=== PATIENT | female | born 1965 | race Caucasian/White ===

== ENCOUNTER 2019-07-18 08:25 | Emergency (ER) | payer OTHER, SELFPAY ==
[2019-07-18 08:34] VITALS: BP 168/94; PULSE 95; RESP 16; TEMP 36.4; O2SAT 97; BMI 51.2
--- NOTE | 2019-07-18 08:41 | ED_ITS ---
HPI - Extremity Injury (Lower) General Chief Complaint: Extremity Injury, Lower Stated Complaint: suspected blood clot Time Seen by Provider: 07/18/19 08:36 Source: patient Mode of arrival: Ambulatory Limitations: no limitations History of Present Illness HPI Narrative: This is a 53-year-old female comes to the emergency department with complaint of some swelling redness and bruising over her right upper thigh. Patient states she noticed it yesterday. It does not look quite as intense today. Patient states is a little bit painful. She has had a blood clot/PE in the past but she states that was post surgical. Patient states she has not had any other DVTs or blood clots. She does not recall any trauma or injury. She states very seemed quite swollen and tense yesterday but does not clean quite as swollen or tense today. Patient denies any numbness, tingling or weakness. She denies any chest pain, shortness of breath, no nausea or vomiting other GI or urinary symptoms. She has not had any fevers or chills. She does not recall any cuts or abrasions or other injuries that could potentially cause infection. She does take metformin for diabetes. She states that she does sit for long periods of time. Related Data Previous Rx's Medication Instructions Recorded methocarbamol 0 PO QIDP PRN #30 tab 08/22/16 Allergies Allergy/AdvReac Type Severity Reaction Status Date / Time codeine [CODEINE] Allergy Unknown Verified 07/18/19 08:34 Review of Systems Review of Systems ROS Unobtainable: All systems reviewed & are unremarkable except as noted in HPI and below Patient History Medical History (Updated 07/18/19 @ 10:00 by Lianne Tijerina DO) Diabetes (Acute) Pulmonary embolism (Acute) Social History Smoking Status: Never smoker alcohol intake frequency: 0-2 drinks per day Substance Use Type: does not use Exam Narrative Exam Narrative: GENERAL: Alert and oriented x three, obese female in mild distress. HEENT: Head normocephalic, atraumatic, EOMI, pupils reactive, face symmetric, moist mucous membranes NECK: Supple, full range of motion CARDIOVASCULAR: Regular rate and rhythm without murmurs, rubs or gallops. RESPIRATORY: Breath sounds equal bilaterally, no wheezes rales or rhonchi. ABDOMEN: Soft, nontender. Normoactive bowel sounds all 4 quadrants. No guarding or rebound, rigidity, no mass : No CVA tenderness EXTREMITIES: Normal range of motion, no clubbing. Patient does appear to have some swelling of the right upper thigh short of extending medially, there is about a 5 cm patchy area that appears slightly erythematous, it is non raised with no other skin changes, area is very mildly warm, mildly tender to touch. I do not appreciate any hematoma, mass or nodules. No varicose veins are appreciated. Neurovascularly intact. patient has 2+ dorsalis pedis with normal sensation throughout her lower extremity. Leg is warm to touch. Cap refills less than 2 seconds. NEUROLOGICAL: Cranial nerves II through XII grossly intact. Moving all extremities SKIN: Warm, dry, no petechiae, no rashes or lesions. Initial Vital Signs Initial Vital Signs: Vital Signs Temperature 97.5 F L 07/18/19 08:34 Pulse Rate 95 H 07/18/19 08:34 Respiratory Rate 16 07/18/19 08:34 Blood Pressure 168/94 H 07/18/19 08:34 Pulse Oximetry 97 07/18/19 08:34 Scores Wells' Criteria for DVT Active Cancer (Treatment within 6 months): No Bedridden recently >3 days or major surgery within 4 weeks: No Calf Swelling >3cm compared to other leg: No Collateral (nonvericose) superficial veins present: No Entire leg swollen: No Localized tenderness along the deep vein system: Yes Pitting edema, confined to symtomatic leg: No Paralysis, paresis, or recent plaster immobilization of ext: No Previously documented DVT: No Alternative dx to DVT as likely or more likely: No Wells' criteria for DVT: 1 Course Orders Ordered: ED Orders 07/18/19 08:50 US periph venous low extrem rt Stat Vital Signs Vital signs: Vital Signs - 8 hr 07/18/19 08:34 07/18/19 10:13 Temperature 97.5 F L Pulse Rate 95 H 69 Respiratory Rate 16 18 Blood Pressure 168/94 H 149/90 H Pulse Oximetry 97 95 MDM - Extremity Injury (Lower) Imaging Data Venous US: Radiologist's impression: [address] [address] Ultrasound Report Signed Patient: Tita Kwan CMR#: [id number] : 1965Acct:[id number] Age/Sex: 53 / FDate of Service: 07/18/19 Loc: ED Accession Number: [id number] Procedure: US periph venous low extrem rt Ordering Provider: Lianne Tijerina D.O. PROCEDURE: PERIPH VENOUS LOW EXTREM RT INDICATIONS: CONCERN FOR DVT, REDNESS/SWELLING RIGHT UPPER THIGH TECHNIQUE: Real-time imaging, as well as color and pulse Doppler interrogation, were performed of the lower extremity deep veins from the inguinal ligament to the popliteal fossa. COMPARISON: None. FINDINGS: The common femoral, femoral and popliteal veins are normally compressible, and free of intraluminal thrombus. Color and pulse Doppler demonstrate normal phasic intraluminal flow. There is normal augmentation response to distal compression maneuver. At the site of the patient's concern along the anterior mid thigh there is an occluded varicose vein identified within the soft tissues of this region. This does not extend into the deep vein system. IMPRESSION: 1. No evidence of deep vein thrombosis of the right lower extremity. 2. Superficial thrombophlebitis along the anterior mid thigh without extension into the deep vein system. Dictated by: Ian Esparza M.D. on 07/18/2019 at 8:44 Approved by: Ian Esparza M.D. on 07/18/2019 at 8:45 MDM Narrative Medical decision making narrative: Discussed findings with patient there is a small but unlikely changes that she could develop a DVT subsequently. We discussed increasing her activity throughout the day so she is not sitting for prolonged periods. Potentially wearing clothes that would prevent her pannus from sitting on her thigh which she states happens and could have caused some compression. We also discussed doing short course of anticoagulant with aspirin although this is not required and she is welcome to discuss it with her primary care but would recommend that she follow up with PCP in 1 week for recheck. Discharge Plan Departure Patient Disposition: Home Clinical Impression: Superficial thrombophlebitis Qualifiers: Superficial thrombophlebitis-Involved body area: lower extremity Laterality: right Qualified Code(s): I80.01 - Phlebitis and thrombophlebitis of superficial vessels of right lower extremity Discharge Date/Time: 07/18/19 10:13 Instructions: DI for Superficial Thrombophlebitis Activity Restrictions/Additional Instructions: Follow-up with primary care in the next week for recheck, call for an appointment. You may take an aspirin 324 mg daily although your thrombophlebitis is not in the deep venous system so this is not required. You may continue home medications as prescribed. Use warm packs or heat to the affected area 4 times daily. Return to the emergency department for fevers, increasing redness, swelling, new shortness of breath, chest pain, numbness, tingling or other new or concerning symptoms. Prescriptions: No Action methocarbamol 500 MG tablet 0 PO QIDP PRNQty: 30 RF: 0 Referrals: Lily Yang PA-C [Primary Care Provider] -
--- NOTE | 2019-07-18 08:50 | DI.US.S_ITS ---
PROCEDURE: US PERIPH VENOUS LOW EXTREM RT INDICATIONS: CONCERN FOR DVT, REDNESS/SWELLING RIGHT UPPER THIGH TECHNIQUE: Real-time imaging, as well as color and pulse Doppler interrogation, were performed of the lower extremity deep veins from the inguinal ligament to the popliteal fossa. COMPARISON: None. FINDINGS: The common femoral, femoral and popliteal veins are normally compressible, and free of intraluminal thrombus. Color and pulse Doppler demonstrate normal phasic intraluminal flow. There is normal augmentation response to distal compression maneuver. At the site of the patient's concern along the anterior mid thigh there is an occluded varicose vein identified within the soft tissues of this region. This does not extend into the deep vein system. IMPRESSION: 1. No evidence of deep vein thrombosis of the right lower extremity. 2. Superficial thrombophlebitis along the anterior mid thigh without extension into the deep vein system. Dictated by: Ian Esparza M.D. on 07/18/2019 at 8:44 Approved by: Ian Esparza M.D. on 07/18/2019 at 8:45
[2019-07-18 10:13] VITALS: BP 149/90; PULSE 69; RESP 18; O2SAT 95
== END 2019-07-18 10:13 | disposition home or self-care (01) ==
PROVIDERS: Emergency Provider Emergency Medicine; Family Provider Physician Assistant; PCP Physician Assistant
DX: I80.01 Phlebitis and thrombophlebitis of superficial vessels of right lower extremity (principal); E11.9 Type 2 diabetes mellitus without complications
CPT/HCPCS: 93971; 99282; 99283

== ENCOUNTER 2019-10-27 07:30 | Outpatient (RCR) | payer OTHER, SELFPAY ==
--- NOTE | 2019-09-22 16:36 | PT.OIE ---
Current Diagnoses Low back pain (09/22/19) Past Medical History (Last Updated 07/18/19 @ 08:52 by Lianne Tijerina DO) Diabetes (Acute) Pulmonary embolism (Acute) Visit Care Team Role Provider Type Lily Yang PA-C Attending Provider Non-Staff Family Provider Primary Care Provider Specialty: Internal Medicine Address: [address] [place] [address], [id number] Email: Physical Therapy Initial Evaluation PT-OP-A Visit Information Start: 09/21/19 15:39 Freq: Status: Active Protocol: Document 09/22/19 08:45 EG (Rec: 09/22/19 10:01 EG [email or web address]) Out-Patient Physical Therapy Visit Information Visit Information Visit Type Initial Evaluation Visit Start Time 07:30 Visit Stop Time 08:30 Total Visit Minutes 60 Visit Number 1 Evaluation Information Evaluation Date 09/22/19 PT-OP-B Current Condition Start: 09/21/19 15:39 Freq: Status: Active Protocol: Document 09/22/19 08:45 EG (Rec: 09/22/19 11:19 EG [email or web address]) Current Condition History of Current Condition Onset Date Chronic Current Complaints Low back with L hip pain History of Current Condition Patient is a 54 year old female who reports to physical therapy with c/c of low back pain and L sided hip pain that began a few years ago and has gotten progressively worse over the years. Patient reports that she feels that she has an exacerbation of back pain every 6 months. She believes that her pain started to bother her when she bought her SUV and has been needing to step up in to it with her L hip in an (externally rotated ) position. She has had physical therapy in the past, about 12 years ago, that seemed to help. The patient has also had an MRI in the past but did not mention anything specific from the MRI . The patient reported that she thinks her pain in the L hip is bursitis and that she can feel this pain increase when hiking on uneven surfaces . The patient has increased exacerbations of pain in the morning and she has a 2 hour routine of heat, ice. and stretching to bring the pain in the low back to a functional level. The patient believes that her pain increases as she rotates side to side on her new memory foam mattress. 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 She also enjoys swimming and walking which does not seem to exacerbate her pain. The patient just bought a new RV to live in and has been placing firm pillows to support her when sitting in the new furniture and places an ottoman under her feet to help alleviate the symptoms. The patient would like to alleviate the pain with therapy and be able to walk her 2 dogs in the morning without having to worry about the pain of bending over and placing their leash on. Prior Treatments and Tests PT 12 years ago and an MRI per patient report that was not presented at evaluation. Patient also reported seeing the chiropracter often Future Testing and Treatments Planned Patient reported wanting to get another MRI in the near future Developmental History Developmental History Patient reports that the pain seems to increase every 6 months and has been getting progressively worse the past couple years. Treatment Goals Patient/Caregiver Goals Patient would like to get out of bed without pain in the morning and be able to bend over in the morning to put the leash on her dogs without pain. Prior Functional Status Baseline Function- ADL's Independent Baseline Function- Mobility Independent Baseline Function- Gait Increased pain in bilateral hips walking on uneven surfaces Baseline Function- Work/School Seated for most of the day Baseline Function- Recreation/Hobbies Swimming Walking Current Functional Impairments (Reported) Functional Limitations- ADL's Bed mobility, Transfers early in the morning Functional Limitations- Mobility/Gait Increased time hiking on uneven surfaces Personal Factors Other Personal Factors That May Effect Patient has BMI of 50.1 Therapy/Recovery Patient has Type II Diabetes Patient has just moved in to a new RV with new foam mattress and new furniture that she believes in increasing her symptoms PT-OP-C Subjective Start: 09/21/19 15:39 Freq: Status: Active Protocol: Document 09/22/19 08:45 EG (Rec: 09/22/19 12:29 EG [email or web address]) Patient Questionnaires Oswestry Low Back Index Oswestry Score 26% Oswestry Impairment 20 to 39% Impaired (Score 20- 39) OP-PT Pain Assessment Pain Assessment Grid Paper Pain Assessment Grid Completed Yes Comments Pain Comments Modified Oswestry Questionnaire completed PT-OP-F Manual Assessment Start: 09/21/19 15:39 Freq: Status: Active Protocol: Document 09/22/19 08:45 EG (Rec: 09/22/19 08:59 EG [email or web address]) Manual Assessments Soft Tissue Assessment Soft Tissue Mobility Assessment Increased soft tissue tension lateral left hip posterior and superior to greater trochanter. Increased tension in gluteal tendon. Joint Mobility Assessment Joint Mobility Assessment PA glide S1-L2 increased p! PT-OP-G Mobility & Gait Start: 09/21/19 15:39 Freq: Status: Active Protocol: Document 09/22/19 08:45 EG (Rec: 09/22/19 08:59 EG [email or web address]) OP Mobility Evaluation Bed Mobility Rolling unwilling to roll due to p! can physically do with momentum and poor mechanics Supine to and from Sit increased lumbar flexion needed with arm movement PT-OP-H Neuro Start: 09/21/19 15:39 Freq: Status: Active Protocol: Document 09/22/19 08:45 EG (Rec: 09/22/19 08:59 EG [email or web address]) Sensation Evaluation Gross Sensation Gross Sensation WNL Comments Summary Comments Did have sharp tingling p! radiating down left hamstring when completed rolling PT-OP-J Posture/Palpation/Skin Start: 09/21/19 15:39 Freq: Status: Active Protocol: Document 09/22/19 08:45 EG (Rec: 09/22/19 09:55 EG [email or web address]) Palpation Assessment Location Two Palpation Location L3-L5 PA glide Palpation Findings Tenderness,Trigger Point Palpation Details Increased sensation of p! 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 PT-OP-L Special Tests Start: 09/21/19 15:39 Freq: Status: Active Protocol: Document 09/22/19 08:45 EG (Rec: 09/22/19 08:59 EG [email or web address]) Special Tests Hip Special Tests FADIR Test Results + Comments When placing R in to test, increased symptoms in the L lower back YARA Test Results + Comments Left significantly different than R - increased soft tissue tension PT-OP-M Strength Start: 09/21/19 15:39 Freq: Status: Active Protocol: Document 09/22/19 08:45 EG (Rec: 09/22/19 09:55 EG [email or web address]) Hip Strength Hip Manual Muscle Testing Right Flexion (L2) 5 Normal Extension (S1) 5 Normal Abduction 4 Good External Rotation 4 Good Internal Rotation 4+ Good+ Comments p! in L low back with R hip IR MMT increased effort needed from patient for R hip ER MMT Left Flexion (L2) 5 Normal Extension (S1) 5 Normal Abduction 4 Good External Rotation 4+ Good+ Internal Rotation 4+ Good+ Comments Increased effort for L knee flexion while seated Knee Strength Knee Manual Muscle Testing Right Flexion (S2) 4+ Good+ Extension (L3) 4+ Good+ Comments Done Seated Left Flexion (S2) 4+ Good+ Extension (L3) 4+ Good+ Comments Done seated PT-OP-Q Treatments Start: 09/21/19 15:39 Freq: Status: Active Protocol: Document 09/22/19 08:45 EG (Rec: 09/22/19 13:12 EG [email or web address]) Therapeutic Exercises Supine Exercises Gluteal Stretch Supine Exercise Name Gluteal/Piriformis Stretch Side bilateral Equipment Used rolled up sheet/stretching strap Reps/Minutes 30 sec each side Comments strap around hamstrings with knee flexion with knee in to chest; figure-4 Posterior Pelvic Tilts Supine Exercise Name Posterior Pelvic Tilt Reps/Minutes 15x Sidelying Exercises Clamshells Sidelying Exercise Name Clamshells Side bilateral Reps/Minutes 20x Comments tactile and verbal cues to decrease A/P pelvic tilt PT-OP-R Modalities Start: 09/21/19 15:39 Freq: Status: Active Protocol: Document 09/22/19 08:45 EG (Rec: 09/22/19 15:48 EG [email or web address]) Hot Pack/Cold Pack Treatment Cold Pack Patient Position Hooklying Treatment Duration (minutes) 7 Patient Tolerance Good Comments She independently took cold pack off after 7 minutes PT-OP-T Assessment and Plan Start: 09/21/19 15:39 Freq: Status: Active Protocol: Document 09/22/19 08:45 EG (Rec: 09/22/19 15:48 EG [email or web address]) Physical Therapy Assessment Rehab Potential Rehabilitation Potential Good Evaluation Complexity Number of Personal Factors/Comorbidities 3 or More Number of Body Systems Impaired 4 or More Clinical Presentation at Evaluation Evolving Impairments Impairments Activity Tolerance,Functional Activities,Functional Mobility ,Gait,Pain,Posture,Soft Tissue Mobility,Strength Goals Three Impairment Bed mobility Short Term Goal (STG) Patient will be able to complete log roll bilaterally with a 0/10 pain in low back while on hard mat table in clinic in 4-6 weeks. STG Duration 4-6 weeks Senior Care Goal (LTG) Patient will be able to complete log roll bilaterally with 0/10 pain in low back while on memory foam matress at home in 8-10 weeks. LTG Duration 8-10 weeks. Two Impairment Morning p! Short Term Goal (STG) Patient will be able to decrease the amount of time in morning to increase soft tissue mobility to <1 hour before being able to walk her dogs without p!. STG Duration 3-4 weeks Senior Care Goal (LTG) Patient will be able to wake up with no pain after 7-8 weeks. LTG Duration 7-8 weeks One Impairment Lumbar Flexion ROM Short Term Goal (STG) Patient will be able to increase her lumbar flexion ROM to be able to touch the ground with her finger tips without pain in 3-4 weeks. STG Duration 3-4 weeks Senior Care Goal (LTG) Patient will be able to increase her lumbar ROM to be able to move in all planes with no pain in 7-8 weeks. LTG Duration 7-8 weeks Assessment Summary Assessment Patient is experiencing soft tissue tightness in the distal erector spinae and supporting SIJ musculature due to inactivity as well as decreased stabilizing muscle strength. As patient increases neuromuscular connection to the TA as well as Gluteal medius during functional activities, the patient will begin to increase pain free mobility when performing fuinctional movement. Patient will also benefit from increased soft tissue lengthening exercises to allow for increased ROM in lumbar flexion, rotation, and lateral flexion to be able to reach down and play with her dogs in a pain free way. Physical Therapy Plan Frequency and Duration Frequency of Treatment 2x/Week Duration of Treatment 8 weeks Plan of Care Start Date 09/22/19 Plan of Care End Date 11/17/19 Therapeutic Interventions Therapeutic Interventions Balance Training,Gait Training ,Home Exercise Program,Joint Mobilizations,Manual Therapy, Neuromuscular Re-education, Self-Care/Home Management,Soft Tissue Mobilization, Therapeutic Activities, Therapeutic Exercises Modalities Cold Pack/Ice Massage,Electric Stimulation,Hot Packs, Traction- Mechanical Next Visit Focus/Plan Next Note Type Treatment Note Next Visit Plan Look at effect of HEP, start warm-up on treadmill, soft tissue mobilization of low spine, increase hip abduction strength exercises such as standing sideways walking, possible traction, increase TA activation with leg movement,
--- NOTE | 2019-09-29 09:36 | PT.OTN ---
Current Diagnoses Low back pain (09/29/19) Physical Therapy Treatment Note PT-OP-A Visit Information Start: 09/21/19 15:39 Freq: Status: Active Protocol: Document 09/29/19 08:33 EG (Rec: 09/29/19 08:59 EG [email or web address]) Out-Patient Physical Therapy Visit Information Visit Information Visit Type Treatment Note Visit Note 11/05 Visit Start Time 07:30 Visit Stop Time 08:15 Total Visit Minutes 45 Visit Number 2 PT-OP-B Current Condition Start: 09/21/19 15:39 Freq: Status: Active Protocol: Document 09/22/19 08:45 EG (Rec: 09/22/19 11:19 EG [email or web address]) Current Condition History of Current Condition Onset Date Chronic Current Complaints Low back with L hip pain History of Current Condition Patient is a 54 year old female who reports to physical therapy with c/c of low back pain and L sided hip pain that began a few years ago and has gotten progressively worse over the years. Patient reports that she feels that she has an exacerbation of back pain every 6 months. She believes that her pain started to bother her when she bought her SUV and has been needing to step up in to it with her L hip in an (externally rotated ) position. She has had physical therapy in the past, about 12 years ago, that seemed to help. The patient has also had an MRI in the past but did not mention anything specific from the MRI . The patient reported that she thinks her pain in the L hip is bursitis and that she can feel this pain increase when hiking on uneven surfaces . The patient has increased exacerbations of pain in the morning and she has a 2 hour routine of heat, ice. and stretching to bring the pain in the low back to a functional level. The patient believes that her pain increases as she rotates side to side on her new memory foam mattress. 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 She also enjoys swimming and walking which does not seem to exacerbate her pain. The patient just bought a new RV to live in and has been placing firm pillows to support her when sitting in the new furniture and places an ottoman under her feet to help alleviate the symptoms. The patient would like to alleviate the pain with therapy and be able to walk her 2 dogs in the morning without having to worry about the pain of bending over and placing their leash on. Prior Treatments and Tests PT 12 years ago and an MRI per patient report that was not presented at evaluation. Patient also reported seeing the chiropracter often Future Testing and Treatments Planned Patient reported wanting to get another MRI in the near future Developmental History Developmental History Patient reports that the pain seems to increase every 6 months and has been getting progressively worse the past couple years. Treatment Goals Patient/Caregiver Goals Patient would like to get out of bed without pain in the morning and be able to bend over in the morning to put the leash on her dogs without pain. Prior Functional Status Baseline Function- ADL's Independent Baseline Function- Mobility Independent Baseline Function- Gait Increased pain in bilateral hips walking on uneven surfaces Baseline Function- Work/School Seated for most of the day Baseline Function- Recreation/Hobbies Swimming Walking Current Functional Impairments (Reported) Functional Limitations- ADL's Bed mobility, Transfers early in the morning Functional Limitations- Mobility/Gait Increased time hiking on uneven surfaces Personal Factors Other Personal Factors That May Effect Patient has BMI of 50.1 Therapy/Recovery Patient has Type II Diabetes Patient has just moved in to a new with new foam mattress and new furniture that she believes in increasing her symptoms PT-OP-C Subjective Start: 09/21/19 15:39 Freq: Status: Active Protocol: Document 09/29/19 08:33 EG (Rec: 09/29/19 08:59 EG [email or web address]) OP-PT Subjective Patient Comments Patient Comments Patient reports that she is feeling better compared to last week when she was sick. She had flu-like symptoms for 3 days and just had to lay around during that time so she is feeling pretty sore. Patient reported that the pelvic tilts she is doing at home causes pain in her back. She also reports that she has not had any nerve like pain flare ups since her evaluation . PT-OP-F Manual Assessment Start: 09/21/19 15:39 Freq: Status: Active Protocol: Document 09/22/19 08:45 EG (Rec: 09/22/19 08:59 EG [email or web address]) Manual Assessments Soft Tissue Assessment Soft Tissue Mobility Assessment Increased soft tissue tension lateral left hip posterior and superior to greater trochanter. Increased tension in gluteal tendon. Joint Mobility Assessment Joint Mobility Assessment PA glide S1-L2 increased p! PT-OP-G Mobility & Gait Start: 09/21/19 15:39 Freq: Status: Active Protocol: Document 09/22/19 08:45 EG (Rec: 09/22/19 08:59 EG [email or web address]) OP Mobility Evaluation Bed Mobility Rolling unwilling to roll due to p! can physically do with momentum and poor mechanics Supine to and from Sit increased lumbar flexion needed with arm movement PT-OP-H Neuro Start: 09/21/19 15:39 Freq: Status: Active Protocol: Document 09/22/19 08:45 EG (Rec: 09/22/19 08:59 EG [email or web address]) Sensation Evaluation Gross Sensation Gross Sensation WNL Comments Summary Comments Did have sharp tingling p! radiating down left hamstring when completed rolling PT-OP-J Posture/Palpation/Skin Start: 09/21/19 15:39 Freq: Status: Active Protocol: Document 09/22/19 08:45 EG (Rec: 09/22/19 09:55 EG [email or web address]) Palpation Assessment Location Two Palpation Location L3-L5 PA glide Palpation Findings Tenderness,Trigger Point Palpation Details Increased sensation of p! 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 PT-OP-L Special Tests Start: 09/21/19 15:39 Freq: Status: Active Protocol: Document 09/22/19 08:45 EG (Rec: 09/22/19 08:59 EG [email or web address]) Special Tests Hip Special Tests FADIR Test Results + Comments When placing R in to test, increased symptoms in the L lower back YARA Test Results + Comments Left significantly different than R - increased soft tissue tension PT-OP-M Strength Start: 09/21/19 15:39 Freq: Status: Active Protocol: Document 09/22/19 08:45 EG (Rec: 09/22/19 09:55 EG [email or web address]) Hip Strength Hip Manual Muscle Testing Right Flexion (L2) 5 Normal Extension (S1) 5 Normal Abduction 4 Good External Rotation 4 Good Internal Rotation 4+ Good+ Comments p! in L low back with R hip IR MMT increased effort needed from patient for R hip ER MMT Left Flexion (L2) 5 Normal Extension (S1) 5 Normal Abduction 4 Good External Rotation 4+ Good+ Internal Rotation 4+ Good+ Comments Increased effort for L knee flexion while seated Knee Strength Knee Manual Muscle Testing Right Flexion (S2) 4+ Good+ Extension (L3) 4+ Good+ Comments Done Seated Left Flexion (S2) 4+ Good+ Extension (L3) 4+ Good+ Comments Done seated PT-OP-Q Treatments Start: 09/21/19 15:39 Freq: Status: Active Protocol: Document 09/29/19 08:33 EG (Rec: 09/29/19 08:59 EG [email or web address]) Cardio Equipment Treadmill Duration (Minutes) 5 Speed 3.0 Incline .5 Therapeutic Exercises Supine Exercises DKTC with knee extension Supine Exercise Name Double knee to chest coupled with knee extension Side bilateral Reps/Minutes 10x Comments patient felt slight discomfort moving knees to chest Supine spinal twist Supine Exercise Name Supine spinal twist Side bilateral Reps/Minutes 10x Comments last twist hold for 30 seconds Posterior Pelvic Tilts Supine Exercise Name Posterior Pelvic Tilt Reps/Minutes 15x Comments Verbal cue to decrease amount of push down in to the table Sidelying Exercises Clamshells Sidelying Exercise Name Clamshells Side bilateral Reps/Minutes 20x Comments tactile and verbal cues to decrease A/P pelvic tilt Standing Exercises Hip Abduction/Extension Standing Exercise Name Hip abduction/extension Side bilateral Equipment Used handrail Reps/Minutes 10x ea side hamstring stretch Standing Exercise Name Hamstring/gastrocnemius Stretch Side bilateral Equipment Used handrails/ARMANDO Reps/Minutes hold 30 seconds Comments tension in L knee Manual Therapy Treatment Manual Traction Low back Details hooklying manual traction Body Position Hooklying Reps/Duration 10 min Comments towel under strap PT-OP-R Modalities Start: 09/21/19 15:39 Freq: Status: Active Protocol: Document 09/22/19 08:45 EG (Rec: 09/22/19 15:48 EG [email or web address]) Hot Pack/Cold Pack Treatment Cold Pack Patient Position Hooklying Treatment Duration (minutes) 7 Patient Tolerance Good Comments She independently took cold pack off after 7 minutes PT-OP-T Assessment and Plan Start: 09/21/19 15:39 Freq: Status: Active Protocol: Document 09/29/19 08:33 EG (Rec: 09/29/19 08:59 EG [email or web address]) Physical Therapy Assessment Assessment Summary Assessment Patient tolerated treatment well this morning and was able to complete standing hip strengthening exercises with slight fatigue. Patient does feel strain on low back when supine and moving in to hip flexion and will benefit from low intensity stretching of this area to help release the musculature around the low back. Hamstring length and posterior chain has decreased tissue length and patient will benefit from increased stretching of posterior chain. Patient should advance core strengthening as tolerated and will continue to benefit from neuromuscular reeduucation of the stabilizing muscles in the hip and the core. Physical Therapy Plan Next Visit Focus/Plan Next Visit Plan Standing lat and low back stretch, continue hamstring and calf stretches. squats at bar. Work on balance. try DKTC with irish ball and rotation
--- NOTE | 2019-10-02 10:34 | PT.OTN ---
Current Diagnoses Low back pain (10/02/19) Physical Therapy Treatment Note PT-OP-A Visit Information Start: 09/21/19 15:39 Freq: Status: Active Protocol: Document 10/02/19 09:23 EG (Rec: 10/02/19 09:40 EG [email or web address]) Out-Patient Physical Therapy Visit Information Visit Information Visit Type Treatment Note Visit Note 12/03 Visit Start Time 07:30 Visit Stop Time 08:15 Total Visit Minutes 45 Visit Number 3 PT-OP-B Current Condition Start: 09/21/19 15:39 Freq: Status: Active Protocol: Document 09/22/19 08:45 EG (Rec: 09/22/19 11:19 EG [email or web address]) Current Condition History of Current Condition Onset Date Chronic Current Complaints Low back with L hip pain History of Current Condition Patient is a 54 year old female who reports to physical therapy with c/c of low back pain and L sided hip pain that began a few years ago and has gotten progressively worse over the years. Patient reports that she feels that she has an exacerbation of back pain every 6 months. She believes that her pain started to bother her when she bought her SUV and has been needing to step up in to it with her L hip in an (externally rotated ) position. She has had physical therapy in the past, about 12 years ago, that seemed to help. The patient has also had an MRI in the past but did not mention anything specific from the MRI . The patient reported that she thinks her pain in the L hip is bursitis and that she can feel this pain increase when hiking on uneven surfaces . The patient has increased exacerbations of pain in the morning and she has a 2 hour routine of heat, ice. and stretching to bring the pain in the low back to a functional level. The patient believes that her pain increases as she rotates side to side on her new memory foam mattress. 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 She also enjoys swimming and walking which does not seem to exacerbate her pain. The patient just bought a new RV to live in and has been placing firm pillows to support her when sitting in the new furniture and places an ottoman under her feet to help alleviate the symptoms. The patient would like to alleviate the pain with therapy and be able to walk her 2 dogs in the morning without having to worry about the pain of bending over and placing their leash on. Prior Treatments and Tests PT 12 years ago and an MRI per patient report that was not presented at evaluation. Patient also reported seeing the chiropracter often Future Testing and Treatments Planned Patient reported wanting to get another MRI in the near future Developmental History Developmental History Patient reports that the pain seems to increase every 6 months and has been getting progressively worse the past couple years. Treatment Goals Patient/Caregiver Goals Patient would like to get out of bed without pain in the morning and be able to bend over in the morning to put the leash on her dogs without pain. Prior Functional Status Baseline Function- ADL's Independent Baseline Function- Mobility Independent Baseline Function- Gait Increased pain in bilateral hips walking on uneven surfaces Baseline Function- Work/School Seated for most of the day Baseline Function- Recreation/Hobbies Swimming Walking Current Functional Impairments (Reported) Functional Limitations- ADL's Bed mobility, Transfers early in the morning Functional Limitations- Mobility/Gait Increased time hiking on uneven surfaces Personal Factors Other Personal Factors That May Effect Patient has BMI of 50.1 Therapy/Recovery Patient has Type II Diabetes Patient has just moved in to a new with new foam mattress and new furniture that she believes in increasing her symptoms PT-OP-C Subjective Start: 09/21/19 15:39 Freq: Status: Active Protocol: Document 10/02/19 09:23 EG (Rec: 10/02/19 09:40 EG [email or web address]) OP-PT Subjective Patient Comments Patient Comments Patient reports that after last session she started to feel an ear infection coming on and didn't feel good at all so she was more sedentary this past week than usual. She only did her exercises one or two times and laid around alot because she wasn't feeling good. Patient also reported that she felt more pain in her knee after doing the traction last visit but her back did feel slightly less sore the next morning. Patient also feels like her R foot started to bother her after last session but doesn't know if she irritated it at therapy or by doing nothing at home. PT-OP-F Manual Assessment Start: 09/21/19 15:39 Freq: Status: Active Protocol: Document 09/22/19 08:45 EG (Rec: 09/22/19 08:59 EG [email or web address]) Manual Assessments Soft Tissue Assessment Soft Tissue Mobility Assessment Increased soft tissue tension lateral left hip posterior and superior to greater trochanter. Increased tension in gluteal tendon. Joint Mobility Assessment Joint Mobility Assessment PA glide S1-L2 increased p! PT-OP-G Mobility & Gait Start: 09/21/19 15:39 Freq: Status: Active Protocol: Document 09/22/19 08:45 EG (Rec: 09/22/19 08:59 EG [email or web address]) OP Mobility Evaluation Bed Mobility Rolling unwilling to roll due to p! can physically do with momentum and poor mechanics Supine to and from Sit increased lumbar flexion needed with arm movement PT-OP-H Neuro Start: 09/21/19 15:39 Freq: Status: Active Protocol: Document 09/22/19 08:45 EG (Rec: 09/22/19 08:59 EG [email or web address]) Sensation Evaluation Gross Sensation Gross Sensation WNL Comments Summary Comments Did have sharp tingling p! radiating down left hamstring when completed rolling PT-OP-J Posture/Palpation/Skin Start: 09/21/19 15:39 Freq: Status: Active Protocol: Document 09/22/19 08:45 EG (Rec: 09/22/19 09:55 EG [email or web address]) Palpation Assessment Location Two Palpation Location L3-L5 PA glide Palpation Findings Tenderness,Trigger Point Palpation Details Increased sensation of p! 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 PT-OP-L Special Tests Start: 09/21/19 15:39 Freq: Status: Active Protocol: Document 09/22/19 08:45 EG (Rec: 09/22/19 08:59 EG [email or web address]) Special Tests Hip Special Tests FADIR Test Results + Comments When placing R in to test, increased symptoms in the L lower back YARA Test Results + Comments Left significantly different than R - increased soft tissue tension PT-OP-M Strength Start: 09/21/19 15:39 Freq: Status: Active Protocol: Document 09/22/19 08:45 EG (Rec: 09/22/19 09:55 EG [email or web address]) Hip Strength Hip Manual Muscle Testing Right Flexion (L2) 5 Normal Extension (S1) 5 Normal Abduction 4 Good External Rotation 4 Good Internal Rotation 4+ Good+ Comments p! in L low back with R hip IR MMT increased effort needed from patient for R hip ER MMT Left Flexion (L2) 5 Normal Extension (S1) 5 Normal Abduction 4 Good External Rotation 4+ Good+ Internal Rotation 4+ Good+ Comments Increased effort for L knee flexion while seated Knee Strength Knee Manual Muscle Testing Right Flexion (S2) 4+ Good+ Extension (L3) 4+ Good+ Comments Done Seated Left Flexion (S2) 4+ Good+ Extension (L3) 4+ Good+ Comments Done seated PT-OP-Q Treatments Start: 09/21/19 15:39 Freq: Status: Active Protocol: Document 10/02/19 09:23 EG (Rec: 10/02/19 09:40 EG [email or web address]) Cardio Equipment Treadmill Duration (Minutes) 5 Speed 1.7 Incline .5 Therapeutic Exercises Sitting Exercises Cat/Cow Sitting Exercise Name Extension/Flexion/Lateral Flexion Side bilateral Equipment Used seated at mat table Reps/Minutes 10x flex/ext - 30 sec lateral flexion Comments move with breath Standing Exercises Side stepping Standing Exercise Name Side stepping R/L Side bilateral Reps/Minutes 15 feet each side; 3x Comments increase neuro activation of glteal muscle firing Lat stretch Standing Exercise Name Standing lat stretch - fwd, bilateral side Side bilateral Equipment Used mat table Reps/Minutes 30 seconds each Comments patient bend at hips with arms supported on mat hamstring stretch Standing Exercise Name Hamstring/gastrocnemius Stretch Side bilateral Equipment Used handrails/ARMANDO Reps/Minutes hold 30 seconds x 2 Comments increase tension on L hamstring PT-OP-R Modalities Start: 09/21/19 15:39 Freq: Status: Active Protocol: Document 10/02/19 09:23 EG (Rec: 10/02/19 09:43 EG [email or web address]) Other Unlisted Modality Treatment Laser Name of Modality Low level laser (LLT) Duration (Minutes) 7 Body Position Sidelying Parameters soft tisse stiffness/pain, chronic, pulsed med Comments Bilateral side of SIJ, L glute med posterior to greater trochanter PT-OP-T Assessment and Plan Start: 09/21/19 15:39 Freq: Status: Active Protocol: Document 10/02/19 09:23 EG (Rec: 10/02/19 09:40 EG [email or web address]) Physical Therapy Assessment Assessment Summary Assessment Patient has been sedentary this past week which does increase stiffness and tension in the lower back. Patient does feel relief with increased soft tissue lengthening and will continue to benefit from therapeutic exercises focused on pain free ROM as well as erector spinae stretching to release tension around the SIJ. Patient should also continue with increased aerobic activity and strengthening core stabilizing musculature/ Physical Therapy Plan Next Visit Focus/Plan Next Visit Plan Continue stretching of HS/ Gastrocnemius/lats. Continue pain-free ROM of spine - possibly progress to hands and knees cat cow. Continue to work on glue med activation. Increase TA engagement. Begin balance training for hip and core stabilization and strengthening Rabia Jenkins DPT, supervised all treatment performed by, and agreed with the plan of care, as performed by MESSI Mina.
--- NOTE | 2019-10-06 09:00 | PT.OTN ---
Current Diagnoses Low back pain (10/06/19) Physical Therapy Treatment Note PT-OP-A Visit Information Start: 09/21/19 15:39 Freq: Status: Active Protocol: Document 10/06/19 08:17 SP (Rec: 10/06/19 11:52 SP [id number]) Out-Patient Physical Therapy Visit Information Visit Information Visit Type Treatment Note Visit Note 01/03 Visit Start Time 08:17 Visit Stop Time 09:00 Total Visit Minutes 43 Visit Number 4 Number of WEB SERVICES MANAGER Visits 1 PT-OP-B Current Condition Start: 09/21/19 15:39 Freq: Status: Active Protocol: Document 09/22/19 08:45 EG (Rec: 09/22/19 11:19 EG [email or web address]) Current Condition History of Current Condition Onset Date Chronic Current Complaints Low back with L hip pain History of Current Condition Patient is a 54 year old female who reports to physical therapy with c/c of low back pain and L sided hip pain that began a few years ago and has gotten progressively worse over the years. Patient reports that she feels that she has an exacerbation of back pain every 6 months. She believes that her pain started to bother her when she bought her SUV and has been needing to step up in to it with her L hip in an (externally rotated ) position. She has had physical therapy in the past, about 12 years ago, that seemed to help. The patient has also had an MRI in the past but did not mention anything specific from the MRI . The patient reported that she thinks her pain in the L hip is bursitis and that she can feel this pain increase when hiking on uneven surfaces . The patient has increased exacerbations of pain in the morning and she has a 2 hour routine of heat, ice. and stretching to bring the pain in the low back to a functional level. The patient believes that her pain increases as she rotates side to side on her new memory foam mattress. 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 She also enjoys swimming and walking which does not seem to exacerbate her pain. The patient just bought a new RV to live in and has been placing firm pillows to support her when sitting in the new furniture and places an ottoman under her feet to help alleviate the symptoms. The patient would like to alleviate the pain with therapy and be able to walk her 2 dogs in the morning without having to worry about the pain of bending over and placing their leash on. Prior Treatments and Tests PT 12 years ago and an MRI per patient report that was not presented at evaluation. Patient also reported seeing the chiropracter often Future Testing and Treatments Planned Patient reported wanting to get another MRI in the near future Developmental History Developmental History Patient reports that the pain seems to increase every 6 months and has been getting progressively worse the past couple years. Treatment Goals Patient/Caregiver Goals Patient would like to get out of bed without pain in the morning and be able to bend over in the morning to put the leash on her dogs without pain. Prior Functional Status Baseline Function- ADL's Independent Baseline Function- Mobility Independent Baseline Function- Gait Increased pain in bilateral hips walking on uneven surfaces Baseline Function- Work/School Seated for most of the day Baseline Function- Recreation/Hobbies Swimming Walking Current Functional Impairments (Reported) Functional Limitations- ADL's Bed mobility, Transfers early in the morning Functional Limitations- Mobility/Gait Increased time hiking on uneven surfaces Personal Factors Other Personal Factors That May Effect Patient has BMI of 50.1 Therapy/Recovery Patient has Type II Diabetes Patient has just moved in to a new with new foam mattress and new furniture that she believes in increasing her symptoms PT-OP-C Subjective Start: 09/21/19 15:39 Freq: Status: Active Protocol: Document 10/06/19 08:17 SP (Rec: 10/06/19 11:52 SP [id number]) OP-PT Subjective Patient Comments Patient Comments Pt stated woke up this am and L shldd in pain, think slept wrong on it. She said was in more pain after last tx and had to take meloxican, hydocodone 9pm and another at 1230am to assist pain along with stretching, heat and ice. When woke up was alot better on Sat. Her L hip is better. Did do stretches, water walking over the weekend but notmuch exercises unsure if would be more irritating. PT-OP-F Manual Assessment Start: 09/21/19 15:39 Freq: Status: Active Protocol: Document 09/22/19 08:45 EG (Rec: 09/22/19 08:59 EG [email or web address]) Manual Assessments Soft Tissue Assessment Soft Tissue Mobility Assessment Increased soft tissue tension lateral left hip posterior and superior to greater trochanter. Increased tension in gluteal tendon. Joint Mobility Assessment Joint Mobility Assessment PA glide S1-L2 increased p! PT-OP-G Mobility & Gait Start: 09/21/19 15:39 Freq: Status: Active Protocol: Document 09/22/19 08:45 EG (Rec: 09/22/19 08:59 EG [email or web address]) OP Mobility Evaluation Bed Mobility Rolling unwilling to roll due to p! can physically do with momentum and poor mechanics Supine to and from Sit increased lumbar flexion needed with arm movement PT-OP-H Neuro Start: 09/21/19 15:39 Freq: Status: Active Protocol: Document 09/22/19 08:45 EG (Rec: 09/22/19 08:59 EG [email or web address]) Sensation Evaluation Gross Sensation Gross Sensation WNL Comments Summary Comments Did have sharp tingling p! radiating down left hamstring when completed rolling PT-OP-J Posture/Palpation/Skin Start: 09/21/19 15:39 Freq: Status: Active Protocol: Document 09/22/19 08:45 EG (Rec: 09/22/19 09:55 EG [email or web address]) Palpation Assessment Location Two Palpation Location L3-L5 PA glide Palpation Findings Tenderness,Trigger Point Palpation Details Increased sensation of p! 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 PT-OP-L Special Tests Start: 09/21/19 15:39 Freq: Status: Active Protocol: Document 09/22/19 08:45 EG (Rec: 09/22/19 08:59 EG [email or web address]) Special Tests Hip Special Tests FADIR Test Results + Comments When placing R in to test, increased symptoms in the L lower back YARA Test Results + Comments Left significantly different than R - increased soft tissue tension PT-OP-M Strength Start: 09/21/19 15:39 Freq: Status: Active Protocol: Document 09/22/19 08:45 EG (Rec: 09/22/19 09:55 EG [email or web address]) Hip Strength Hip Manual Muscle Testing Right Flexion (L2) 5 Normal Extension (S1) 5 Normal Abduction 4 Good External Rotation 4 Good Internal Rotation 4+ Good+ Comments p! in L low back with R hip IR MMT increased effort needed from patient for R hip ER MMT Left Flexion (L2) 5 Normal Extension (S1) 5 Normal Abduction 4 Good External Rotation 4+ Good+ Internal Rotation 4+ Good+ Comments Increased effort for L knee flexion while seated Knee Strength Knee Manual Muscle Testing Right Flexion (S2) 4+ Good+ Extension (L3) 4+ Good+ Comments Done Seated Left Flexion (S2) 4+ Good+ Extension (L3) 4+ Good+ Comments Done seated PT-OP-Q Treatments Start: 09/21/19 15:39 Freq: Status: Active Protocol: Document 10/06/19 08:17 SP (Rec: 10/06/19 11:52 SP [id number]) Cardio Equipment Treadmill Duration (Minutes) 5 Speed 1.7 Incline .5 Therapeutic Exercises Supine Exercises DKTC core lift Side bilateral Resistance AROM Reps/Minutes 2x5 Comments Cued lower ribcage toward table with slow pacing HS stretch Side bilateral Equipment Used strap Reps/Minutes 30 x3 Prone Exercises Child's pose stretch Prone Exercise Name child's pose with side bend Side bilateral Reps/Minutes 30 x3 quadruped Prone Exercise Name cat camel Resistance AROM Reps/Minutes x10 Sidelying Exercises Clamshells Sidelying Exercise Name Clamshells Side bilateral Reps/Minutes 10x Comments tactile and verbal cues to decrease A/P pelvic tilt Standing Exercises Gastroc stretch Side bilateral Equipment Used ARMANDO wedge Reps/Minutes 30 x3 PT-OP-R Modalities Start: 09/21/19 15:39 Freq: Status: Active Protocol: Document 10/06/19 08:17 SP (Rec: 10/06/19 11:52 SP [email or web address]) Other Unlisted Modality Treatment Laser Name of Modality Low level laser (LLT) Duration (Minutes) 7 Body Position Sidelying Parameters soft tisse stiffness/pain, chronic, pulsed med Comments Bilateral side of SIJ, L glute med posterior to greater trochanter 1.06 min / area 58 joules PT-OP-T Assessment and Plan Start: 09/21/19 15:39 Freq: Status: Active Protocol: Document 10/06/19 08:17 SP (Rec: 10/06/19 11:52 SP [id number]) Physical Therapy Assessment Goals Three Impairment Bed mobility Short Term Goal (STG) Patient will be able to complete log roll bilaterally with a 0/10 pain in low back while on hard mat table in clinic in 4-6 weeks. STG Duration 4-6 weeks Integrated Logistics Programs Director Goal (LTG) Patient will be able to complete log roll bilaterally with 0/10 pain in low back while on memory foam matress at home in 8-10 weeks. LTG Duration 8-10 weeks. Two Impairment Morning p! Short Term Goal (STG) Patient will be able to decrease the amount of time in morning to increase soft tissue mobility to <1 hour before being able to walk her dogs without p!. STG Duration 3-4 weeks Integrated Logistics Programs Director Goal (LTG) Patient will be able to wake up with no pain after 7-8 weeks. LTG Duration 7-8 weeks One Impairment Lumbar Flexion ROM Short Term Goal (STG) Patient will be able to increase her lumbar flexion ROM to be able to touch the ground with her finger tips without pain in 3-4 weeks. STG Duration 3-4 weeks Integrated Logistics Programs Director Goal (LTG) Patient will be able to increase her lumbar ROM to be able to move in all planes with no pain in 7-8 weeks. LTG Duration 7-8 weeks Assessment Summary Assessment Pt had adverse reactions to last tx having to take meds to assist and many change of positions but next day was over all better. Pt responded well to tx today. Reviewed supine core DL lift and added HS stretch using strap with cuing for 3 positions (hip reg /IR/ER), added quadruped cat/ cow with no adverse reactions, feels good actually on the back,did not tolerated seated trunk flexion secondary to posterolateral hip and LB discomfort so changed to supine. Cued for Unilateral calf stretch so not worry about balancing and contact wall for support. Pt tolerated lazer, repeated as last tx patient stated hip felt better over all next day. Physical Therapy Plan Frequency and Duration Frequency of Treatment 2x/Week Duration of Treatment 8 weeks Plan of Care Start Date 09/22/19 Plan of Care End Date 11/17/19 Therapeutic Interventions Therapeutic Interventions Balance Training,Gait Training ,Home Exercise Program,Joint Mobilizations,Manual Therapy, Neuromuscular Re-education, Self-Care/Home Management,Soft Tissue Mobilization, Therapeutic Activities, Therapeutic Exercises Modalities Cold Pack/Ice Massage,Electric Stimulation,Hot Packs, Traction- Mechanical Next Visit Focus/Plan Next Visit Plan Assess response to cat/cow and supine HS stretch added last tx. Next tx add ITB stretch instanding due to tight ITB lateral knee, didnt get to today. Continue stretching of HS/ Gastrocnemius/lats. Continue pain-free ROM of spine - possibly progress to hands and knees cat cow. Continue to work on glue med activation. Increase TA engagement. Begin balance training for hip and core stabilization and strengthening
--- NOTE | 2019-10-06 09:00 | PT.OTN ---
Current Diagnoses Low back pain (10/06/19) Physical Therapy Treatment Note PT-OP-A Visit Information Start: 09/21/19 15:39 Freq: Status: Active Protocol: Document 10/06/19 08:17 SP (Rec: 10/06/19 11:52 SP [id number]) Out-Patient Physical Therapy Visit Information Visit Information Visit Type Treatment Note Visit Note 01/03 Visit Start Time 08:17 Visit Stop Time 09:00 Total Visit Minutes 43 Visit Number 4 Number of RECREATIONAL THERAPY AIDE Visits 1 PT-OP-B Current Condition Start: 09/21/19 15:39 Freq: Status: Active Protocol: Document 09/22/19 08:45 EG (Rec: 09/22/19 11:19 EG [email or web address]) Current Condition History of Current Condition Onset Date Chronic Current Complaints Low back with L hip pain History of Current Condition Patient is a 54 year old female who reports to physical therapy with c/c of low back pain and L sided hip pain that began a few years ago and has gotten progressively worse over the years. Patient reports that she feels that she has an exacerbation of back pain every 6 months. She believes that her pain started to bother her when she bought her SUV and has been needing to step up in to it with her L hip in an (externally rotated ) position. She has had physical therapy in the past, about 12 years ago, that seemed to help. The patient has also had an MRI in the past but did not mention anything specific from the MRI . The patient reported that she thinks her pain in the L hip is bursitis and that she can feel this pain increase when hiking on uneven surfaces . The patient has increased exacerbations of pain in the morning and she has a 2 hour routine of heat, ice. and stretching to bring the pain in the low back to a functional level. The patient believes that her pain increases as she rotates side to side on her new memory foam mattress. 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 She also enjoys swimming and walking which does not seem to exacerbate her pain. The patient just bought a new RV to live in and has been placing firm pillows to support her when sitting in the new furniture and places an ottoman under her feet to help alleviate the symptoms. The patient would like to alleviate the pain with therapy and be able to walk her 2 dogs in the morning without having to worry about the pain of bending over and placing their leash on. Prior Treatments and Tests PT 12 years ago and an MRI per patient report that was not presented at evaluation. Patient also reported seeing the chiropracter often Future Testing and Treatments Planned Patient reported wanting to get another MRI in the near future Developmental History Developmental History Patient reports that the pain seems to increase every 6 months and has been getting progressively worse the past couple years. Treatment Goals Patient/Caregiver Goals Patient would like to get out of bed without pain in the morning and be able to bend over in the morning to put the leash on her dogs without pain. Prior Functional Status Baseline Function- ADL's Independent Baseline Function- Mobility Independent Baseline Function- Gait Increased pain in bilateral hips walking on uneven surfaces Baseline Function- Work/School Seated for most of the day Baseline Function- Recreation/Hobbies Swimming Walking Current Functional Impairments (Reported) Functional Limitations- ADL's Bed mobility, Transfers early in the morning Functional Limitations- Mobility/Gait Increased time hiking on uneven surfaces Personal Factors Other Personal Factors That May Effect Patient has BMI of 50.1 Therapy/Recovery Patient has Type II Diabetes Patient has just moved in to a new with new foam mattress and new furniture that she believes in increasing her symptoms PT-OP-C Subjective Start: 09/21/19 15:39 Freq: Status: Active Protocol: Document 10/06/19 08:17 SP (Rec: 10/06/19 11:52 SP [id number]) OP-PT Subjective Patient Comments Patient Comments Pt stated woke up this am and L shldd in pain, think slept wrong on it. She said was in more pain after last tx and had to take meloxican, hydocodone 9pm and another at 1230am to assist pain along with stretching, heat and ice. When woke up was alot better on Sat. Her L hip is better. Did do stretches, water walking over the weekend but notmuch exercises unsure if would be more irritating. PT-OP-F Manual Assessment Start: 09/21/19 15:39 Freq: Status: Active Protocol: Document 09/22/19 08:45 EG (Rec: 09/22/19 08:59 EG [email or web address]) Manual Assessments Soft Tissue Assessment Soft Tissue Mobility Assessment Increased soft tissue tension lateral left hip posterior and superior to greater trochanter. Increased tension in gluteal tendon. Joint Mobility Assessment Joint Mobility Assessment PA glide S1-L2 increased p! PT-OP-G Mobility & Gait Start: 09/21/19 15:39 Freq: Status: Active Protocol: Document 09/22/19 08:45 EG (Rec: 09/22/19 08:59 EG [email or web address]) OP Mobility Evaluation Bed Mobility Rolling unwilling to roll due to p! can physically do with momentum and poor mechanics Supine to and from Sit increased lumbar flexion needed with arm movement PT-OP-H Neuro Start: 09/21/19 15:39 Freq: Status: Active Protocol: Document 09/22/19 08:45 EG (Rec: 09/22/19 08:59 EG [email or web address]) Sensation Evaluation Gross Sensation Gross Sensation WNL Comments Summary Comments Did have sharp tingling p! radiating down left hamstring when completed rolling PT-OP-J Posture/Palpation/Skin Start: 09/21/19 15:39 Freq: Status: Active Protocol: Document 09/22/19 08:45 EG (Rec: 09/22/19 09:55 EG [email or web address]) Palpation Assessment Location Two Palpation Location L3-L5 PA glide Palpation Findings Tenderness,Trigger Point Palpation Details Increased sensation of p! 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 PT-OP-L Special Tests Start: 09/21/19 15:39 Freq: Status: Active Protocol: Document 09/22/19 08:45 EG (Rec: 09/22/19 08:59 EG [email or web address]) Special Tests Hip Special Tests FADIR Test Results + Comments When placing R in to test, increased symptoms in the L lower back YARA Test Results + Comments Left significantly different than R - increased soft tissue tension PT-OP-M Strength Start: 09/21/19 15:39 Freq: Status: Active Protocol: Document 09/22/19 08:45 EG (Rec: 09/22/19 09:55 EG [email or web address]) Hip Strength Hip Manual Muscle Testing Right Flexion (L2) 5 Normal Extension (S1) 5 Normal Abduction 4 Good External Rotation 4 Good Internal Rotation 4+ Good+ Comments p! in L low back with R hip IR MMT increased effort needed from patient for R hip ER MMT Left Flexion (L2) 5 Normal Extension (S1) 5 Normal Abduction 4 Good External Rotation 4+ Good+ Internal Rotation 4+ Good+ Comments Increased effort for L knee flexion while seated Knee Strength Knee Manual Muscle Testing Right Flexion (S2) 4+ Good+ Extension (L3) 4+ Good+ Comments Done Seated Left Flexion (S2) 4+ Good+ Extension (L3) 4+ Good+ Comments Done seated PT-OP-Q Treatments Start: 09/21/19 15:39 Freq: Status: Active Protocol: Document 10/06/19 08:17 SP (Rec: 10/06/19 11:52 SP [id number]) Cardio Equipment Treadmill Duration (Minutes) 5 Speed 1.7 Incline .5 Therapeutic Exercises Supine Exercises HS stretch Side left Reps/Minutes 30 x3 PT-OP-R Modalities Start: 09/21/19 15:39 Freq: Status: Active Protocol: Document 10/06/19 08:17 SP (Rec: 10/06/19 11:52 SP [id number]) Other Unlisted Modality Treatment Laser Name of Modality Low level laser (LLT) Duration (Minutes) 7 Body Position Sidelying Parameters soft tisse stiffness/pain, chronic, pulsed med Comments Bilateral side of SIJ, L glute med posterior to greater trochanter 1.06 min / area 58 joules PT-OP-T Assessment and Plan Start: 09/21/19 15:39 Freq: Status: Active Protocol: Document 10/06/19 08:17 SP (Rec: 10/06/19 11:52 SP [id number]) Physical Therapy Assessment Goals Three Impairment Bed mobility Short Term Goal (STG) Patient will be able to complete log roll bilaterally with a 0/10 pain in low back while on hard mat table in clinic in 4-6 weeks. STG Duration 4-6 weeks Senior Care Goal (LTG) Patient will be able to complete log roll bilaterally with 0/10 pain in low back while on memory foam matress at home in 8-10 weeks. LTG Duration 8-10 weeks. Two Impairment Morning p! Short Term Goal (STG) Patient will be able to decrease the amount of time in morning to increase soft tissue mobility to <1 hour before being able to walk her dogs without p!. STG Duration 3-4 weeks Inspection And Testing Supervisor Goal (LTG) Patient will be able to wake up with no pain after 7-8 weeks. LTG Duration 7-8 weeks One Impairment Lumbar Flexion ROM Short Term Goal (STG) Patient will be able to increase her lumbar flexion ROM to be able to touch the ground with her finger tips without pain in 3-4 weeks. STG Duration 3-4 weeks Inspection And Testing Supervisor Goal (LTG) Patient will be able to increase her lumbar ROM to be able to move in all planes with no pain in 7-8 weeks. LTG Duration 7-8 weeks Assessment Summary Assessment Pt had adverse reactions to last tx having to take meds to assist and many change of positions but next day was over all better. Pt responded well to tx today. Reviewed supine core DL lift and added HS stretch using strap with cuing for 3 positions (hip reg /IR/ER), added quadruped cat/ cow with no adverse reactions, feels good actually on the back,did not tolerated seated trunk flexion secondary to posterolateral hip and LB discomfort so changed to supine. Cued for Unilateral calf stretch so not worry about balancing and contact wall for support. Pt tolerated lazer, repeated as last tx patient stated hip felt better over all next day. Physical Therapy Plan Frequency and Duration Frequency of Treatment 2x/Week Duration of Treatment 8 weeks Plan of Care Start Date 09/22/19 Plan of Care End Date 11/17/19 Therapeutic Interventions Therapeutic Interventions Balance Training,Gait Training ,Home Exercise Program,Joint Mobilizations,Manual Therapy, Neuromuscular Re-education, Self-Care/Home Management,Soft Tissue Mobilization, Therapeutic Activities, Therapeutic Exercises Modalities Cold Pack/Ice Massage,Electric Stimulation,Hot Packs, Traction- Mechanical Next Visit Focus/Plan Next Visit Plan Assess response to cat/cow and supine HS stretch added last tx. Next tx add ITB stretch instanding due to tight ITB lateral knee, didnt get to today. Continue stretching of HS/ Gastrocnemius/lats. Continue pain-free ROM of spine - possibly progress to hands and knees cat cow. Continue to work on glue med activation. Increase TA engagement. Begin balance training for hip and core stabilization and strengthening
--- NOTE | 2019-10-09 15:38 | PT.OTN ---
Current Diagnoses Low back pain (10/09/19) Physical Therapy Treatment Note PT-OP-A Visit Information Start: 09/21/19 15:39 Freq: Status: Active Protocol: Document 10/09/19 12:18 EG (Rec: 10/09/19 12:45 EG [email or web address]) Out-Patient Physical Therapy Visit Information Visit Information Visit Type Treatment Note Visit Note 02/02 Visit Start Time 07:30 Visit Stop Time 08:15 Total Visit Minutes 45 Visit Number 5 Number of CORPORATE CONSULTANT Visits 0 PT-OP-B Current Condition Start: 09/21/19 15:39 Freq: Status: Active Protocol: Document 09/22/19 08:45 EG (Rec: 09/22/19 11:19 EG [email or web address]) Current Condition History of Current Condition Onset Date Chronic Current Complaints Low back with L hip pain History of Current Condition Patient is a 54 year old female who reports to physical therapy with c/c of low back pain and L sided hip pain that began a few years ago and has gotten progressively worse over the years. Patient reports that she feels that she has an exacerbation of back pain every 6 months. She believes that her pain started to bother her when she bought her SUV and has been needing to step up in to it with her L hip in an (externally rotated ) position. She has had physical therapy in the past, about 12 years ago, that seemed to help. The patient has also had an MRI in the past but did not mention anything specific from the MRI . The patient reported that she thinks her pain in the L hip is bursitis and that she can feel this pain increase when hiking on uneven surfaces . The patient has increased exacerbations of pain in the morning and she has a 2 hour routine of heat, ice. and stretching to bring the pain in the low back to a functional level. The patient believes that her pain increases as she rotates side to side on her new memory foam mattress. 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 She also enjoys swimming and walking which does not seem to exacerbate her pain. The patient just bought a new RV to live in and has been placing firm pillows to support her when sitting in the new furniture and places an ottoman under her feet to help alleviate the symptoms. The patient would like to alleviate the pain with therapy and be able to walk her 2 dogs in the morning without having to worry about the pain of bending over and placing their leash on. Prior Treatments and Tests PT 12 years ago and an MRI per patient report that was not presented at evaluation. Patient also reported seeing the chiropracter often Future Testing and Treatments Planned Patient reported wanting to get another MRI in the near future Developmental History Developmental History Patient reports that the pain seems to increase every 6 months and has been getting progressively worse the past couple years. Treatment Goals Patient/Caregiver Goals Patient would like to get out of bed without pain in the morning and be able to bend over in the morning to put the leash on her dogs without pain. Prior Functional Status Baseline Function- ADL's Independent Baseline Function- Mobility Independent Baseline Function- Gait Increased pain in bilateral hips walking on uneven surfaces Baseline Function- Work/School Seated for most of the day Baseline Function- Recreation/Hobbies Swimming Walking Current Functional Impairments (Reported) Functional Limitations- ADL's Bed mobility, Transfers early in the morning Functional Limitations- Mobility/Gait Increased time hiking on uneven surfaces Personal Factors Other Personal Factors That May Effect Patient has BMI of 50.1 Therapy/Recovery Patient has Type II Diabetes Patient has just moved in to a new with new foam mattress and new furniture that she believes in increasing her symptoms PT-OP-C Subjective Start: 09/21/19 15:39 Freq: Status: Active Protocol: Document 10/09/19 12:18 EG (Rec: 10/09/19 12:45 EG [email or web address]) OP-PT Subjective Patient Comments Patient Comments Patient stated that she was feeling really sore this morning. She did go swimming and walked in pool since the last appointment and walked for 1 hour yesterday with her dogs. She is trying to do more exercising because she is sitting down all the time for her work and school but she thinks she is sore due to this . Patient also reported that she is going to get rid of her sofa and try and get a recliner because she thinks this will help her situation. PT-OP-F Manual Assessment Start: 09/21/19 15:39 Freq: Status: Active Protocol: Document 09/22/19 08:45 EG (Rec: 09/22/19 08:59 EG [email or web address]) Manual Assessments Soft Tissue Assessment Soft Tissue Mobility Assessment Increased soft tissue tension lateral left hip posterior and superior to greater trochanter. Increased tension in gluteal tendon. Joint Mobility Assessment Joint Mobility Assessment PA glide S1-L2 increased p! PT-OP-G Mobility & Gait Start: 09/21/19 15:39 Freq: Status: Active Protocol: Document 09/22/19 08:45 EG (Rec: 09/22/19 08:59 EG [email or web address]) OP Mobility Evaluation Bed Mobility Rolling unwilling to roll due to p! can physically do with momentum and poor mechanics Supine to and from Sit increased lumbar flexion needed with arm movement PT-OP-H Neuro Start: 09/21/19 15:39 Freq: Status: Active Protocol: Document 09/22/19 08:45 EG (Rec: 09/22/19 08:59 EG [email or web address]) Sensation Evaluation Gross Sensation Gross Sensation WNL Comments Summary Comments Did have sharp tingling p! radiating down left hamstring when completed rolling PT-OP-J Posture/Palpation/Skin Start: 09/21/19 15:39 Freq: Status: Active Protocol: Document 09/22/19 08:45 EG (Rec: 09/22/19 09:55 EG [email or web address]) Palpation Assessment Location Two Palpation Location L3-L5 PA glide Palpation Findings Tenderness,Trigger Point Palpation Details Increased sensation of p! in upper L hip with PA glide One Palpation Location L lateral hip posterior to Greater trochanter Palpation Findings Tenderness Palpation Details bruising feeling per patient report PT-OP-K Range of Motion Start: 09/21/19 15:39 Freq: Status: Active Protocol: Document 09/22/19 08:45 EG (Rec: 09/22/19 08:59 EG [email or web address]) Lumbar Spine Range of Motion Lumbar Spine Active Degrees ROM Limitations Soft Tissue Tightness,Pain Comments Measured inches in lumbar flexion of finger tips to ground with tape bookkeeping assistant: 5 inches R lateral flexion standing increased muscle tension on R side L lateral flexion standing increased muscle tension on L side Standing extension was done without pain WNL but when done in prone, patient experienced pain while holding lumbar extension on forearms but after 10x repetition, pt no longer had symptoms in low back though did experience increased tingling down towards L foot. PT-OP-L Special Tests Start: 09/21/19 15:39 Freq: Status: Active Protocol: Document 09/22/19 08:45 EG (Rec: 09/22/19 08:59 EG [email or web address]) Special Tests Hip Special Tests FADIR Test Results + Comments When placing R in to test, increased symptoms in the L lower back YARA Test Results + Comments Left significantly different than R - increased soft tissue tension PT-OP-M Strength Start: 09/21/19 15:39 Freq: Status: Active Protocol: Document 09/22/19 08:45 EG (Rec: 09/22/19 09:55 EG [email or web address]) Hip Strength Hip Manual Muscle Testing Right Flexion (L2) 5 Normal Extension (S1) 5 Normal Abduction 4 Good External Rotation 4 Good Internal Rotation 4+ Good+ Comments p! in L low back with R hip IR MMT increased effort needed from patient for R hip ER MMT Left Flexion (L2) 5 Normal Extension (S1) 5 Normal Abduction 4 Good External Rotation 4+ Good+ Internal Rotation 4+ Good+ Comments Increased effort for L knee flexion while seated Knee Strength Knee Manual Muscle Testing Right Flexion (S2) 4+ Good+ Extension (L3) 4+ Good+ Comments Done Seated Left Flexion (S2) 4+ Good+ Extension (L3) 4+ Good+ Comments Done seated PT-OP-Q Treatments Start: 09/21/19 15:39 Freq: Status: Active Protocol: Document 10/09/19 12:18 EG (Rec: 10/09/19 12:45 EG [email or web address]) Cardio Equipment Treadmill Duration (Minutes) 5 Speed 1.5 Incline 1.0 Therapeutic Exercises Supine Exercises HS stretch Supine Exercise Name Supine hamstring/ITB/Adductor stretch Side bilateral Equipment Used strap Reps/Minutes 30 each DKTC with knee extension Supine Exercise Name DKTC with english ball/Rotation with english ball Side bilateral Equipment Used Red english ball Reps/Minutes 10x each Comments fatigue with DKTC Supine spinal twist Supine Exercise Name Supine Spinal Twist Reps/Minutes 10x each side Prone Exercises quadruped Prone Exercise Name cat/cow Resistance AROM Reps/Minutes x10 Comments Extension to neutral - emphasize core contraction in neutral Sidelying Exercises Clamshells Sidelying Exercise Name Clamshells Side bilateral Resistance Level 1 Equipment Used TB Reps/Minutes 10x each side Comments tactile and verbal cues to decrease A/P pelvic tilt Sitting Exercises Cat/Cow Sitting Exercise Name Extension/Flexion/Lateral Flexion/Rotation Side bilateral Equipment Used seated at mat table Reps/Minutes 10x flex/ext - 30 sec lateral flexion Comments move with breath Standing Exercises Gastroc stretch Side bilateral Equipment Used ARMANDO wedge Reps/Minutes 30 x3 PT-OP-R Modalities Start: 09/21/19 15:39 Freq: Status: Active Protocol: Document 10/09/19 12:18 EG (Rec: 10/09/19 12:46 EG [email or web address]) Other Unlisted Modality Treatment Laser Name of Modality Low level laser (LLT) Duration (Minutes) 6 Body Position Sidelying Parameters soft tisse stiffness/pain, chronic, pulsed med Comments Bilateral side of SIJ, L glute med posterior to greater trochanter 1.06 min / area 58 joules PT-OP-T Assessment and Plan Start: 09/21/19 15:39 Freq: Status: Active Protocol: Document 10/09/19 12:18 EG (Rec: 10/09/19 12:45 EG [email or web address]) Physical Therapy Assessment Assessment Summary Assessment Patient has been feeling increased soreness in L hip and back after an increase in activity at home. Patient is encouraged to get up more often throughout the day to walk and do spinal mobility exercises to increase ROM of the spine while strengthening core and hip musculature for stability. Patient is in acute pain in morning and once this is stabilized, strengthening should be emphasized more than ROM. Patient will continue to benefit from these exercises to help with decreased pain first thing in the morning. Physical Therapy Plan Next Visit Focus/Plan Next Visit Plan Continue with spinal ROM movements. Introduce standing hip abduction and balance exercises. Increase core strengthening.
--- NOTE | 2019-10-12 08:15 | PT.OTN ---
Current Diagnoses Low back pain (10/12/19) Physical Therapy Treatment Note PT-OP-A Visit Information Start: 09/21/19 15:39 Freq: Status: Active Protocol: Document 10/12/19 07:33 SP (Rec: 10/12/19 08:23 SP [id number]) Out-Patient Physical Therapy Visit Information Visit Information Visit Type Treatment Note Visit Note 03/05 Visit Start Time 07:33 Visit Stop Time 08:15 Total Visit Minutes 42 Visit Number 6 Number of SENIOR BOILER OPERATOR Visits 1 PT-OP-B Current Condition Start: 09/21/19 15:39 Freq: Status: Active Protocol: Document 09/22/19 08:45 EG (Rec: 09/22/19 11:19 EG [email or web address]) Current Condition History of Current Condition Onset Date Chronic Current Complaints Low back with L hip pain History of Current Condition Patient is a 54 year old female who reports to physical therapy with c/c of low back pain and L sided hip pain that began a few years ago and has gotten progressively worse over the years. Patient reports that she feels that she has an exacerbation of back pain every 6 months. She believes that her pain started to bother her when she bought her SUV and has been needing to step up in to it with her L hip in an (externally rotated ) position. She has had physical therapy in the past, about 12 years ago, that seemed to help. The patient has also had an MRI in the past but did not mention anything specific from the MRI . The patient reported that she thinks her pain in the L hip is bursitis and that she can feel this pain increase when hiking on uneven surfaces . The patient has increased exacerbations of pain in the morning and she has a 2 hour routine of heat, ice. and stretching to bring the pain in the low back to a functional level. The patient believes that her pain increases as she rotates side to side on her new memory foam mattress. 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 She also enjoys swimming and walking which does not seem to exacerbate her pain. The patient just bought a new RV to live in and has been placing firm pillows to support her when sitting in the new furniture and places an ottoman under her feet to help alleviate the symptoms. The patient would like to alleviate the pain with therapy and be able to walk her 2 dogs in the morning without having to worry about the pain of bending over and placing their leash on. Prior Treatments and Tests PT 12 years ago and an MRI per patient report that was not presented at evaluation. Patient also reported seeing the chiropracter often Future Testing and Treatments Planned Patient reported wanting to get another MRI in the near future Developmental History Developmental History Patient reports that the pain seems to increase every 6 months and has been getting progressively worse the past couple years. Treatment Goals Patient/Caregiver Goals Patient would like to get out of bed without pain in the morning and be able to bend over in the morning to put the leash on her dogs without pain. Prior Functional Status Baseline Function- ADL's Independent Baseline Function- Mobility Independent Baseline Function- Gait Increased pain in bilateral hips walking on uneven surfaces Baseline Function- Work/School Seated for most of the day Baseline Function- Recreation/Hobbies Swimming Walking Current Functional Impairments (Reported) Functional Limitations- ADL's Bed mobility, Transfers early in the morning Functional Limitations- Mobility/Gait Increased time hiking on uneven surfaces Personal Factors Other Personal Factors That May Effect Patient has BMI of 50.1 Therapy/Recovery Patient has Type II Diabetes Patient has just moved in to a new with new foam mattress and new furniture that she believes in increasing her symptoms PT-OP-C Subjective Start: 09/21/19 15:39 Freq: Status: Active Protocol: Document 10/12/19 07:33 SP (Rec: 10/12/19 08:23 SP [id number]) OP-PT Subjective Patient Comments Patient Comments Pt stated more L hip pain over the weekend, super tight pre PT. lifted L leg on bench and felt pinching L hip. Very compliant with stretches and has been walking dog. PT-OP-F Manual Assessment Start: 09/21/19 15:39 Freq: Status: Active Protocol: Document 09/22/19 08:45 EG (Rec: 09/22/19 08:59 EG [email or web address]) Manual Assessments Soft Tissue Assessment Soft Tissue Mobility Assessment Increased soft tissue tension lateral left hip posterior and superior to greater trochanter. Increased tension in gluteal tendon. Joint Mobility Assessment Joint Mobility Assessment PA glide S1-L2 increased p! PT-OP-G Mobility & Gait Start: 09/21/19 15:39 Freq: Status: Active Protocol: Document 09/22/19 08:45 EG (Rec: 09/22/19 08:59 EG [email or web address]) OP Mobility Evaluation Bed Mobility Rolling unwilling to roll due to p! can physically do with momentum and poor mechanics Supine to and from Sit increased lumbar flexion needed with arm movement PT-OP-H Neuro Start: 09/21/19 15:39 Freq: Status: Active Protocol: Document 09/22/19 08:45 EG (Rec: 09/22/19 08:59 EG [email or web address]) Sensation Evaluation Gross Sensation Gross Sensation WNL Comments Summary Comments Did have sharp tingling p! radiating down left hamstring when completed rolling PT-OP-J Posture/Palpation/Skin Start: 09/21/19 15:39 Freq: Status: Active Protocol: Document 09/22/19 08:45 EG (Rec: 09/22/19 09:55 EG [email or web address]) Palpation Assessment Location Two Palpation Location L3-L5 PA glide Palpation Findings Tenderness,Trigger Point Palpation Details Increased sensation of p! in upper L hip with PA glide One Palpation Location L lateral hip posterior to Greater trochanter Palpation Findings Tenderness Palpation Details bruising feeling per patient report PT-OP-K Range of Motion Start: 09/21/19 15:39 Freq: Status: Active Protocol: Document 09/22/19 08:45 EG (Rec: 09/22/19 08:59 EG [email or web address]) Lumbar Spine Range of Motion Lumbar Spine Active Degrees ROM Limitations Soft Tissue Tightness,Pain Comments Measured inches in lumbar flexion of finger tips to ground with tape hide splitter: 5 inches R lateral flexion standing increased muscle tension on R side L lateral flexion standing increased muscle tension on L side Standing extension was done without pain WNL but when done in prone, patient experienced pain while holding lumbar extension on forearms but after 10x repetition, pt no longer had symptoms in low back though did experience increased tingling down towards L foot. PT-OP-L Special Tests Start: 09/21/19 15:39 Freq: Status: Active Protocol: Document 09/22/19 08:45 EG (Rec: 09/22/19 08:59 EG [email or web address]) Special Tests Hip Special Tests FADIR Test Results + Comments When placing R in to test, increased symptoms in the L lower back YARA Test Results + Comments Left significantly different than R - increased soft tissue tension PT-OP-M Strength Start: 09/21/19 15:39 Freq: Status: Active Protocol: Document 09/22/19 08:45 EG (Rec: 09/22/19 09:55 EG [email or web address]) Hip Strength Hip Manual Muscle Testing Right Flexion (L2) 5 Normal Extension (S1) 5 Normal Abduction 4 Good External Rotation 4 Good Internal Rotation 4+ Good+ Comments p! in L low back with R hip IR MMT increased effort needed from patient for R hip ER MMT Left Flexion (L2) 5 Normal Extension (S1) 5 Normal Abduction 4 Good External Rotation 4+ Good+ Internal Rotation 4+ Good+ Comments Increased effort for L knee flexion while seated Knee Strength Knee Manual Muscle Testing Right Flexion (S2) 4+ Good+ Extension (L3) 4+ Good+ Comments Done Seated Left Flexion (S2) 4+ Good+ Extension (L3) 4+ Good+ Comments Done seated PT-OP-Q Treatments Start: 09/21/19 15:39 Freq: Status: Active Protocol: Document 10/12/19 07:33 SP (Rec: 10/12/19 08:23 SP [id number]) Cardio Equipment Treadmill Duration (Minutes) 5 Speed 1.5 Incline 1.0 Therapeutic Exercises Supine Exercises DKTC with knee extension Supine Exercise Name DKTC with kittitian ball/Rotation with kittitian ball Side bilateral Equipment Used Red kittitian ball Reps/Minutes 10x each Comments fatigue with DKTC Supine spinal twist Supine Exercise Name Supine Spinal Twist Side bilateral Equipment Used red kittitian ball Reps/Minutes 10x each side Standing Exercises cat cow Equipment Used bench back rest Reps/Minutes x10 ITB stretch Reps/Minutes 30 x2 Hip Abduction/Extension Standing Exercise Name Hip abduction/extension Side bilateral Resistance Tb #1 loop Equipment Used handrail Reps/Minutes 10x ea side PT-OP-R Modalities Start: 09/21/19 15:39 Freq: Status: Active Protocol: Document 10/12/19 07:33 SP (Rec: 10/12/19 08:23 SP [id number]) Other Unlisted Modality Treatment Laser Name of Modality Low level laser (LLT) Duration (Minutes) 6 Body Position Sidelying Parameters soft tisse stiffness/pain, chronic, pulsed med Comments Bilateral side of SIJ, L glute med posterior to greater trochanter 1.06 min / area 58 joules PT-OP-T Assessment and Plan Start: 09/21/19 15:39 Freq: Status: Active Protocol: Document 10/12/19 07:33 SP (Rec: 10/12/19 08:23 SP [id number]) Physical Therapy Assessment Goals Three Impairment Bed mobility Short Term Goal (STG) Patient will be able to complete log roll bilaterally with a 0/10 pain in low back while on hard mat table in clinic in 4-6 weeks. STG Duration 4-6 weeks Steam Shovel Runner Goal (LTG) Patient will be able to complete log roll bilaterally with 0/10 pain in low back while on memory foam matress at home in 8-10 weeks. LTG Duration 8-10 weeks. Two Impairment Morning p! Short Term Goal (STG) Patient will be able to decrease the amount of time in morning to increase soft tissue mobility to <1 hour before being able to walk her dogs without p!. STG Duration 3-4 weeks Assisted Goal (LTG) Patient will be able to wake up with no pain after 7-8 weeks. LTG Duration 7-8 weeks One Impairment Lumbar Flexion ROM Short Term Goal (STG) Patient will be able to increase her lumbar flexion ROM to be able to touch the ground with her finger tips without pain in 3-4 weeks. STG Duration 3-4 weeks Steam Shovel Runner Goal (LTG) Patient will be able to increase her lumbar ROM to be able to move in all planes with no pain in 7-8 weeks. LTG Duration 7-8 weeks Assessment Summary Assessment Pt responded well to added Tb hip abd loop around LE and added ITb stretch. Reviewed DKTC ball and added LTR with ball today positive feedback. looser but still irritation L hip end of tx. Pt wanted to do CP at home later. Physical Therapy Plan Frequency and Duration Frequency of Treatment 2x/Week Duration of Treatment 8 weeks Plan of Care Start Date 09/22/19 Plan of Care End Date 11/17/19 Therapeutic Interventions Therapeutic Interventions Balance Training,Gait Training ,Home Exercise Program,Joint Mobilizations,Manual Therapy, Neuromuscular Re-education, Self-Care/Home Management,Soft Tissue Mobilization, Therapeutic Activities, Therapeutic Exercises Modalities Cold Pack/Ice Massage,Electric Stimulation,Hot Packs, Traction- Mechanical Next Visit Focus/Plan Next Visit Plan Assess tolerance/response to added ITB stretch, hip abd/ext resistance. Continue with spinal ROM movements. Intriduce standing hip abduction and balance exercises. Increase core strengthening.
--- NOTE | 2019-10-20 15:39 | PT.OTN ---
Current Diagnoses Low back pain (10/20/19) Physical Therapy Treatment Note PT-OP-A Visit Information Start: 09/21/19 15:39 Freq: Status: Active Protocol: Document 10/20/19 12:48 EG (Rec: 10/20/19 13:00 EG [email or web address]) Out-Patient Physical Therapy Visit Information Visit Information Visit Type Treatment Note Visit Note 04/04 Visit Start Time 07:30 Visit Stop Time 08:15 Total Visit Minutes 45 Visit Number 7 Number of EDITING COMPUTER PUBLISHER Visits 0 PT-OP-B Current Condition Start: 09/21/19 15:39 Freq: Status: Active Protocol: Document 09/22/19 08:45 EG (Rec: 09/22/19 11:19 EG [email or web address]) Current Condition History of Current Condition Onset Date Chronic Current Complaints Low back with L hip pain History of Current Condition Patient is a 54 year old female who reports to physical therapy with c/c of low back pain and L sided hip pain that began a few years ago and has gotten progressively worse over the years. Patient reports that she feels that she has an exacerbation of back pain every 6 months. She believes that her pain started to bother her when she bought her SUV and has been needing to step up in to it with her L hip in an (externally rotated ) position. She has had physical therapy in the past, about 12 years ago, that seemed to help. The patient has also had an MRI in the past but did not mention anything specific from the MRI . The patient reported that she thinks her pain in the L hip is bursitis and that she can feel this pain increase when hiking on uneven surfaces . The patient has increased exacerbations of pain in the morning and she has a 2 hour routine of heat, ice. and stretching to bring the pain in the low back to a functional level. The patient believes that her pain increases as she rotates side to side on her new memory foam mattress. 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 She also enjoys swimming and walking which does not seem to exacerbate her pain. The patient just bought a new RV to live in and has been placing firm pillows to support her when sitting in the new furniture and places an ottoman under her feet to help alleviate the symptoms. The patient would like to alleviate the pain with therapy and be able to walk her 2 dogs in the morning without having to worry about the pain of bending over and placing their leash on. Prior Treatments and Tests PT 12 years ago and an MRI per patient report that was not presented at evaluation. Patient also reported seeing the chiropracter often Future Testing and Treatments Planned Patient reported wanting to get another MRI in the near future Developmental History Developmental History Patient reports that the pain seems to increase every 6 months and has been getting progressively worse the past couple years. Treatment Goals Patient/Caregiver Goals Patient would like to get out of bed without pain in the morning and be able to bend over in the morning to put the leash on her dogs without pain. Prior Functional Status Baseline Function- ADL's Independent Baseline Function- Mobility Independent Baseline Function- Gait Increased pain in bilateral hips walking on uneven surfaces Baseline Function- Work/School Seated for most of the day Baseline Function- Recreation/Hobbies Swimming Walking Current Functional Impairments (Reported) Functional Limitations- ADL's Bed mobility, Transfers early in the morning Functional Limitations- Mobility/Gait Increased time hiking on uneven surfaces Personal Factors Other Personal Factors That May Effect Patient has BMI of 50.1 Therapy/Recovery Patient has Type II Diabetes Patient has just moved in to a new with new foam mattress and new furniture that she believes in increasing her symptoms PT-OP-C Subjective Start: 09/21/19 15:39 Freq: Status: Active Protocol: Document 10/20/19 12:48 EG (Rec: 10/20/19 13:00 EG [email or web address]) OP-PT Subjective Patient Comments Patient Comments Patient reported that she is feeling better though yesterday she thinks that she overstretched a little and is feeling more sore in the back today. Patient reported that last week was a bad week going to the pool because of work but she is taking every oppurtunity she can get to stand up and do her stretches and get up from sitting. She has tried to increase the amount of work she can do standing. She has not experienced pain bending over in the morning but does still feel the tightness. PT-OP-F Manual Assessment Start: 09/21/19 15:39 Freq: Status: Active Protocol: Document 09/22/19 08:45 EG (Rec: 09/22/19 08:59 EG [email or web address]) Manual Assessments Soft Tissue Assessment Soft Tissue Mobility Assessment Increased soft tissue tension lateral left hip posterior and superior to greater trochanter. Increased tension in gluteal tendon. Joint Mobility Assessment Joint Mobility Assessment PA glide S1-L2 increased p! PT-OP-G Mobility & Gait Start: 09/21/19 15:39 Freq: Status: Active Protocol: Document 09/22/19 08:45 EG (Rec: 09/22/19 08:59 EG [email or web address]) OP Mobility Evaluation Bed Mobility Rolling unwilling to roll due to p! can physically do with momentum and poor mechanics Supine to and from Sit increased lumbar flexion needed with arm movement PT-OP-H Neuro Start: 09/21/19 15:39 Freq: Status: Active Protocol: Document 09/22/19 08:45 EG (Rec: 09/22/19 08:59 EG [email or web address]) Sensation Evaluation Gross Sensation Gross Sensation WNL Comments Summary Comments Did have sharp tingling p! radiating down left hamstring when completed rolling PT-OP-J Posture/Palpation/Skin Start: 09/21/19 15:39 Freq: Status: Active Protocol: Document 09/22/19 08:45 EG (Rec: 09/22/19 09:55 EG [email or web address]) Palpation Assessment Location Two Palpation Location L3-L5 PA glide Palpation Findings Tenderness,Trigger Point Palpation Details Increased sensation of p! in upper L hip with PA glide One Palpation Location L lateral hip posterior to Greater trochanter Palpation Findings Tenderness Palpation Details bruising feeling per patient report PT-OP-K Range of Motion Start: 09/21/19 15:39 Freq: Status: Active Protocol: Document 09/22/19 08:45 EG (Rec: 09/22/19 08:59 EG [email or web address]) Lumbar Spine Range of Motion Lumbar Spine Active Degrees ROM Limitations Soft Tissue Tightness,Pain Comments Measured inches in lumbar flexion of finger tips to ground with tape provider relations specialist: 5 inches R lateral flexion standing increased muscle tension on R side L lateral flexion standing increased muscle tension on L side Standing extension was done without pain WNL but when done in prone, patient experienced pain while holding lumbar extension on forearms but after 10x repetition, pt no longer had symptoms in low back though did experience increased tingling down towards L foot. PT-OP-L Special Tests Start: 09/21/19 15:39 Freq: Status: Active Protocol: Document 09/22/19 08:45 EG (Rec: 09/22/19 08:59 EG [email or web address]) Special Tests Hip Special Tests FADIR Test Results + Comments When placing R in to test, increased symptoms in the L lower back YARA Test Results + Comments Left significantly different than R - increased soft tissue tension PT-OP-M Strength Start: 09/21/19 15:39 Freq: Status: Active Protocol: Document 09/22/19 08:45 EG (Rec: 09/22/19 09:55 EG [email or web address]) Hip Strength Hip Manual Muscle Testing Right Flexion (L2) 5 Normal Extension (S1) 5 Normal Abduction 4 Good External Rotation 4 Good Internal Rotation 4+ Good+ Comments p! in L low back with R hip IR MMT increased effort needed from patient for R hip ER MMT Left Flexion (L2) 5 Normal Extension (S1) 5 Normal Abduction 4 Good External Rotation 4+ Good+ Internal Rotation 4+ Good+ Comments Increased effort for L knee flexion while seated Knee Strength Knee Manual Muscle Testing Right Flexion (S2) 4+ Good+ Extension (L3) 4+ Good+ Comments Done Seated Left Flexion (S2) 4+ Good+ Extension (L3) 4+ Good+ Comments Done seated PT-OP-Q Treatments Start: 09/21/19 15:39 Freq: Status: Active Protocol: Document 10/20/19 12:48 EG (Rec: 10/20/19 13:00 EG [email or web address]) Cardio Equipment Treadmill Duration (Minutes) 6 Speed 1.5 Incline 1.0 Gym Equipment Shuttle Balance Balance Details chains on blue level Reps/Duration done for 4 minutes Therapeutic Exercises Supine Exercises HS stretch Supine Exercise Name HS/Adductor stretch Equipment Used TB for strap Reps/Minutes 30 sec Sidelying Exercises Clamshells Sidelying Exercise Name Clams Side bilateral Resistance level 2 Reps/Minutes 10x each side Sitting Exercises Cat/Cow Sitting Exercise Name Seated ROM Reps/Minutes 5x each way Comments flexion, extension, lateral flexion, twist Standing Exercises Squats Standing Exercise Name squats Equipment Used railing for support Reps/Minutes 2x8 Comments focus on pulling legs apart and sticking hips back Side stepping Standing Exercise Name Lateral walking Side bilateral Equipment Used wall railing for support Reps/Minutes 3x10ft each way Lat stretch Standing Exercise Name Lat stretch using mat table for support Side bilateral Equipment Used mat table Reps/Minutes 30 seconds PT-OP-R Modalities Start: 09/21/19 15:39 Freq: Status: Active Protocol: Document 10/20/19 12:48 EG (Rec: 10/20/19 14:44 EG [email or web address]) Other Unlisted Modality Treatment Laser Name of Modality Low level laser (LLT) Duration (Minutes) 6 Body Position Sidelying Parameters soft tisse stiffness/pain, chronic, pulsed med Comments Bilateral side of SIJ, L glute med posterior to greater trochanter 1.06 min / area 58 joules PT-OP-T Assessment and Plan Start: 09/21/19 15:39 Freq: Status: Active Protocol: Document 10/20/19 12:48 EG (Rec: 10/20/19 14:49 EG [email or web address]) Physical Therapy Assessment Assessment Summary Assessment Patient tolerated therapeutic exercises well today and is progressing well with hip abduction strengthening. Patient has been feeling better due to an increased in mobility of the lumbar spine but will continue to benefit from core strengthening. Patient will also benefit from continual movement at home and taking breaks from a seated position. Patient was encouraged to begin aerobic activity again to increase activity load away from therapy. Physical Therapy Plan Next Visit Focus/Plan Next Note Type Treatment Note Next Visit Plan Assess how hips felt after strengthening exercises. Continue to increase core strengthening. Begin more balance activities. Use the shuttle balance again. IRabia DPT, supervised all treatment performed by, and agreed with the plan of care, as performed by MESSI Pinto.
--- NOTE | 2019-10-27 08:25 | PT.OTN ---
Current Diagnoses Low back pain (10/27/19) Physical Therapy Treatment Note PT-OP-A Visit Information Start: 09/21/19 15:39 Freq: Status: Active Protocol: Document 10/27/19 07:33 SP (Rec: 10/27/19 11:57 SP [id number]) Out-Patient Physical Therapy Visit Information Visit Information Visit Type Treatment Note Visit Note 05/05 Visit Start Time 07:33 Visit Stop Time 08:25 Total Visit Minutes 52 Visit Number 8 Number of CHIEF ENGINEER WATERWORKS Visits 1 PT-OP-B Current Condition Start: 09/21/19 15:39 Freq: Status: Active Protocol: Document 09/22/19 08:45 EG (Rec: 09/22/19 11:19 EG [email or web address]) Current Condition History of Current Condition Onset Date Chronic Current Complaints Low back with L hip pain History of Current Condition Patient is a 54 year old female who reports to physical therapy with c/c of low back pain and L sided hip pain that began a few years ago and has gotten progressively worse over the years. Patient reports that she feels that she has an exacerbation of back pain every 6 months. She believes that her pain started to bother her when she bought her SUV and has been needing to step up in to it with her L hip in an (externally rotated ) position. She has had physical therapy in the past, about 12 years ago, that seemed to help. The patient has also had an MRI in the past but did not mention anything specific from the MRI . The patient reported that she thinks her pain in the L hip is bursitis and that she can feel this pain increase when hiking on uneven surfaces . The patient has increased exacerbations of pain in the morning and she has a 2 hour routine of heat, ice. and stretching to bring the pain in the low back to a functional level. The patient believes that her pain increases as she rotates side to side on her new memory foam mattress. 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 She also enjoys swimming and walking which does not seem to exacerbate her pain. The patient just bought a new RV to live in and has been placing firm pillows to support her when sitting in the new furniture and places an ottoman under her feet to help alleviate the symptoms. The patient would like to alleviate the pain with therapy and be able to walk her 2 dogs in the morning without having to worry about the pain of bending over and placing their leash on. Prior Treatments and Tests PT 12 years ago and an MRI per patient report that was not presented at evaluation. Patient also reported seeing the chiropracter often Future Testing and Treatments Planned Patient reported wanting to get another MRI in the near future Developmental History Developmental History Patient reports that the pain seems to increase every 6 months and has been getting progressively worse the past couple years. Treatment Goals Patient/Caregiver Goals Patient would like to get out of bed without pain in the morning and be able to bend over in the morning to put the leash on her dogs without pain. Prior Functional Status Baseline Function- ADL's Independent Baseline Function- Mobility Independent Baseline Function- Gait Increased pain in bilateral hips walking on uneven surfaces Baseline Function- Work/School Seated for most of the day Baseline Function- Recreation/Hobbies Swimming Walking Current Functional Impairments (Reported) Functional Limitations- ADL's Bed mobility, Transfers early in the morning Functional Limitations- Mobility/Gait Increased time hiking on uneven surfaces Personal Factors Other Personal Factors That May Effect Patient has BMI of 50.1 Therapy/Recovery Patient has Type II Diabetes Patient has just moved in to a new with new foam mattress and new furniture that she believes in increasing her symptoms PT-OP-C Subjective Start: 09/21/19 15:39 Freq: Status: Active Protocol: Document 10/27/19 07:33 SP (Rec: 10/27/19 11:57 SP [id number]) OP-PT Subjective Patient Comments Patient Comments Pt reported 7.5/10 LBP L>R SI area and over the weekend has had really band days but then yesterday was great and not sure why, not doing anything different. Pt arrived and cancelled all appts saying PT isn't helping will just think going to go to pool and do class exercises on her own. PT-OP-F Manual Assessment Start: 09/21/19 15:39 Freq: Status: Active Protocol: Document 09/22/19 08:45 EG (Rec: 09/22/19 08:59 EG [email or web address]) Manual Assessments Soft Tissue Assessment Soft Tissue Mobility Assessment Increased soft tissue tension lateral left hip posterior and superior to greater trochanter. Increased tension in gluteal tendon. Joint Mobility Assessment Joint Mobility Assessment PA glide S1-L2 increased p! PT-OP-G Mobility & Gait Start: 09/21/19 15:39 Freq: Status: Active Protocol: Document 09/22/19 08:45 EG (Rec: 09/22/19 08:59 EG [email or web address]) OP Mobility Evaluation Bed Mobility Rolling unwilling to roll due to p! can physically do with momentum and poor mechanics Supine to and from Sit increased lumbar flexion needed with arm movement PT-OP-H Neuro Start: 09/21/19 15:39 Freq: Status: Active Protocol: Document 09/22/19 08:45 EG (Rec: 09/22/19 08:59 EG [email or web address]) Sensation Evaluation Gross Sensation Gross Sensation WNL Comments Summary Comments Did have sharp tingling p! radiating down left hamstring when completed rolling PT-OP-J Posture/Palpation/Skin Start: 09/21/19 15:39 Freq: Status: Active Protocol: Document 09/22/19 08:45 EG (Rec: 09/22/19 09:55 EG [email or web address]) Palpation Assessment Location Two Palpation Location L3-L5 PA glide Palpation Findings Tenderness,Trigger Point Palpation Details Increased sensation of p! in upper L hip with PA glide One Palpation Location L lateral hip posterior to Greater trochanter Palpation Findings Tenderness Palpation Details bruising feeling per patient report PT-OP-K Range of Motion Start: 09/21/19 15:39 Freq: Status: Active Protocol: Document 09/22/19 08:45 EG (Rec: 09/22/19 08:59 EG [email or web address]) Lumbar Spine Range of Motion Lumbar Spine Active Degrees ROM Limitations Soft Tissue Tightness,Pain Comments Measured inches in lumbar flexion of finger tips to ground with tape product design engineer: 5 inches R lateral flexion standing increased muscle tension on R side L lateral flexion standing increased muscle tension on L side Standing extension was done without pain WNL but when done in prone, patient experienced pain while holding lumbar extension on forearms but after 10x repetition, pt no longer had symptoms in low back though did experience increased tingling down towards L foot. PT-OP-L Special Tests Start: 09/21/19 15:39 Freq: Status: Active Protocol: Document 09/22/19 08:45 EG (Rec: 09/22/19 08:59 EG [email or web address]) Special Tests Hip Special Tests FADIR Test Results + Comments When placing R in to test, increased symptoms in the L lower back YARA Test Results + Comments Left significantly different than R - increased soft tissue tension PT-OP-M Strength Start: 09/21/19 15:39 Freq: Status: Active Protocol: Document 09/22/19 08:45 EG (Rec: 09/22/19 09:55 EG [email or web address]) Hip Strength Hip Manual Muscle Testing Right Flexion (L2) 5 Normal Extension (S1) 5 Normal Abduction 4 Good External Rotation 4 Good Internal Rotation 4+ Good+ Comments p! in L low back with R hip IR MMT increased effort needed from patient for R hip ER MMT Left Flexion (L2) 5 Normal Extension (S1) 5 Normal Abduction 4 Good External Rotation 4+ Good+ Internal Rotation 4+ Good+ Comments Increased effort for L knee flexion while seated Knee Strength Knee Manual Muscle Testing Right Flexion (S2) 4+ Good+ Extension (L3) 4+ Good+ Comments Done Seated Left Flexion (S2) 4+ Good+ Extension (L3) 4+ Good+ Comments Done seated PT-OP-Q Treatments Start: 09/21/19 15:39 Freq: Status: Active Protocol: Document 10/27/19 07:33 SP (Rec: 10/27/19 11:57 SP [id number]) Therapeutic Exercises Supine Exercises pelvic alignment isometrics Supine Exercise Name pelvic lift, adductor and HS sometrc Reps/Minutes 3 sec hold x5 each R and L Comments tingling after HS isometric so stated not to do Gluteal Stretch Supine Exercise Name Gluteal/Piriformis Stretch Side bilateral Equipment Used rolled up sheet/stretching strap Reps/Minutes 30 sec each side x3 Comments strap around hamstrings with knee flexion with knee in to chest; figure-4 Manual Therapy Treatment Soft Tissue Mobilization L>R PF and hip ERs Mobilization Type Cross-Friction,Sustained Pressure Intensity/Depth Moderate Body Position Prone Taping SI X taping Treatment Focus compress SI and provide suport Type of Tape Kinesio Tape Skin Inspection normal color/texture PT-OP-R Modalities Start: 09/21/19 15:39 Freq: Status: Active Protocol: Document 10/27/19 07:33 SP (Rec: 10/27/19 11:57 SP [id number]) Hot Pack/Cold Pack Treatment MHP Location LB Patient Position Prone Treatment Duration (minutes) 15 Patient Tolerance Good Comments with IFC PT-OP-T Assessment and Plan Start: 09/21/19 15:39 Freq: Status: Active Protocol: Document 10/27/19 07:33 SP (Rec: 10/27/19 11:57 SP [id number]) Physical Therapy Assessment Goals Three Impairment Bed mobility Short Term Goal (STG) Patient will be able to complete log roll bilaterally with a 0/10 pain in low back while on hard mat table in clinic in 4-6 weeks. STG Duration 4-6 weeks Resistor Winder Goal (LTG) Patient will be able to complete log roll bilaterally with 0/10 pain in low back while on memory foam matress at home in 8-10 weeks. LTG Duration 8-10 weeks. Two Impairment Morning p! Short Term Goal (STG) Patient will be able to decrease the amount of time in morning to increase soft tissue mobility to <1 hour before being able to walk her dogs without p!. STG Duration 3-4 weeks Custodial Goal (LTG) Patient will be able to wake up with no pain after 7-8 weeks. LTG Duration 7-8 weeks One Impairment Lumbar Flexion ROM Short Term Goal (STG) Patient will be able to increase her lumbar flexion ROM to be able to touch the ground with her finger tips without pain in 3-4 weeks. STG Duration 3-4 weeks Resistor Winder Goal (LTG) Patient will be able to increase her lumbar ROM to be able to move in all planes with no pain in 7-8 weeks. LTG Duration 7-8 weeks Assessment Summary Assessment Pt arrived with increased pain in LB and L>R SI and hip ERs 7-04/25. Pt reported no pain post manual STMs, pelvic X K taping to SI or IFC with MHP today upon leaving wow I have no pain, so much better and glad I came today. CHIEF ENGINEER WATERWORKS suggested to patient adding aquatic therapy to POC knowing has taken classes in the past and responds well. PT/CHIEF ENGINEER WATERWORKS at [facility] can create a HEP for 3 treatments until follows up with PT and assess forward progression, verbal agreement from patient. CHIEF ENGINEER WATERWORKS faxed request of added aquatic therapy to PT's POC. Pt will continue 1/wk at [facility] for 3 treatments and follow up with PT in 3 weeks to assess if can progress on land. Pt stated pelvic tilt exercises have been the most uncomfortable of all of them but wanted a copy of all HEP thus far for recall if feel better to perform in the meantime. Physical Therapy Plan Frequency and Duration Frequency of Treatment 2x/Week Duration of Treatment 8 weeks Plan of Care Start Date 09/22/19 Plan of Care End Date 11/17/19 Therapeutic Interventions Therapeutic Interventions Balance Training,Gait Training ,Home Exercise Program,Joint Mobilizations,Manual Therapy, Neuromuscular Re-education, Self-Care/Home Management,Soft Tissue Mobilization, Therapeutic Activities, Therapeutic Exercises Modalities Cold Pack/Ice Massage,Electric Stimulation,Hot Packs, Traction- Mechanical Next Visit Focus/Plan Next Note Type Treatment Note Next Visit Plan Assess response to manual, pelvic alignment ex added today, K taping to SI and modalities last tx. Next tx add aquatic therapy HEP ( 3 treatments) and assess response then follow up with PT Rabia for forward progress. Continue to increase core strengthening. Begin more balance activities. Use the shuttle balance again.
--- NOTE | 2020-03-23 16:03 | PT.OPDS ---
Current Diagnoses Low back pain (10/27/19) Visit Care Team Role Provider Type Lily Yang PA-C Attending Provider Non-Staff Family Provider Primary Care Provider Specialty: Internal Medicine Address: [address] [place] [address], [id number] Email: Visit Number Visit Number 8 Discharge Summary PT-OP-B Current Condition Start: 09/21/19 15:39 Freq: Status: Active Protocol: Document 09/22/19 08:45 EG (Rec: 09/22/19 11:19 EG [email or web address]) Current Condition History of Current Condition Onset Date Chronic Current Complaints Low back with L hip pain History of Current Condition Patient is a 54 year old female who reports to physical therapy with c/c of low back pain and L sided hip pain that began a few years ago and has gotten progressively worse over the years. Patient reports that she feels that she has an exacerbation of back pain every 6 months. She believes that her pain started to bother her when she bought her SUV and has been needing to step up in to it with her L hip in an (externally rotated ) position. She has had physical therapy in the past, about 12 years ago, that seemed to help. The patient has also had an MRI in the past but did not mention anything specific from the MRI . The patient reported that she thinks her pain in the L hip is bursitis and that she can feel this pain increase when hiking on uneven surfaces . The patient has increased exacerbations of pain in the morning and she has a 2 hour routine of heat, ice. and stretching to bring the pain in the low back to a functional level. The patient believes that her pain increases as she rotates side to side on her new memory foam mattress. 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 She also enjoys swimming and walking which does not seem to exacerbate her pain. The patient just bought a new RV to live in and has been placing firm pillows to support her when sitting in the new furniture and places an ottoman under her feet to help alleviate the symptoms. The patient would like to alleviate the pain with therapy and be able to walk her 2 dogs in the morning without having to worry about the pain of bending over and placing their leash on. Prior Treatments and Tests PT 12 years ago and an MRI per patient report that was not presented at evaluation. Patient also reported seeing the chiropracter often Future Testing and Treatments Planned Patient reported wanting to get another MRI in the near future Developmental History Developmental History Patient reports that the pain seems to increase every 6 months and has been getting progressively worse the past couple years. Treatment Goals Patient/Caregiver Goals Patient would like to get out of bed without pain in the morning and be able to bend over in the morning to put the leash on her dogs without pain. Prior Functional Status Baseline Function- ADL's Independent Baseline Function- Mobility Independent Baseline Function- Gait Increased pain in bilateral hips walking on uneven surfaces Baseline Function- Work/School Seated for most of the day Baseline Function- Recreation/Hobbies Swimming Walking Current Functional Impairments (Reported) Functional Limitations- ADL's Bed mobility, Transfers early in the morning Functional Limitations- Mobility/Gait Increased time hiking on uneven surfaces Personal Factors Other Personal Factors That May Effect Patient has BMI of 50.1 Therapy/Recovery Patient has Type II Diabetes Patient has just moved in to a new with new foam mattress and new furniture that she believes in increasing her symptoms PT-OP-C Subjective Start: 09/21/19 15:39 Freq: Status: Active Protocol: Document 10/27/19 07:33 SP (Rec: 10/27/19 11:57 SP [id number]) OP-PT Subjective Patient Comments Patient Comments Pt reported 7.5/10 LBP L>R SI area and over the weekend has had really band days but then yesterday was great and not sure why, not doing anything different. Pt arrived and cancelled all appts saying PT isn't helping will just think going to go to pool and do class exercises on her own. PT-OP-F Manual Assessment Start: 09/21/19 15:39 Freq: Status: Active Protocol: Document 09/22/19 08:45 EG (Rec: 09/22/19 08:59 EG [email or web address]) Manual Assessments Soft Tissue Assessment Soft Tissue Mobility Assessment Increased soft tissue tension lateral left hip posterior and superior to greater trochanter. Increased tension in gluteal tendon. Joint Mobility Assessment Joint Mobility Assessment PA glide S1-L2 increased p! PT-OP-G Mobility & Gait Start: 09/21/19 15:39 Freq: Status: Active Protocol: Document 09/22/19 08:45 EG (Rec: 09/22/19 08:59 EG [email or web address]) OP Mobility Evaluation Bed Mobility Rolling unwilling to roll due to p! can physically do with momentum and poor mechanics Supine to and from Sit increased lumbar flexion needed with arm movement PT-OP-H Neuro Start: 09/21/19 15:39 Freq: Status: Active Protocol: Document 09/22/19 08:45 EG (Rec: 09/22/19 08:59 EG [email or web address]) Sensation Evaluation Gross Sensation Gross Sensation WNL Comments Summary Comments Did have sharp tingling p! radiating down left hamstring when completed rolling PT-OP-J Posture/Palpation/Skin Start: 09/21/19 15:39 Freq: Status: Active Protocol: Document 09/22/19 08:45 EG (Rec: 09/22/19 09:55 EG [email or web address]) Palpation Assessment Location Two Palpation Location L3-L5 PA glide Palpation Findings Tenderness,Trigger Point Palpation Details Increased sensation of p! 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 PT-OP-L Special Tests Start: 09/21/19 15:39 Freq: Status: Active Protocol: Document 09/22/19 08:45 EG (Rec: 09/22/19 08:59 EG [email or web address]) Special Tests Hip Special Tests FADIR Test Results + Comments When placing R in to test, increased symptoms in the L lower back YARA Test Results + Comments Left significantly different than R - increased soft tissue tension PT-OP-M Strength Start: 09/21/19 15:39 Freq: Status: Active Protocol: Document 09/22/19 08:45 EG (Rec: 09/22/19 09:55 EG [email or web address]) Hip Strength Hip Manual Muscle Testing Right Flexion (L2) 5 Normal Extension (S1) 5 Normal Abduction 4 Good External Rotation 4 Good Internal Rotation 4+ Good+ Comments p! in L low back with R hip IR MMT increased effort needed from patient for R hip ER MMT Left Flexion (L2) 5 Normal Extension (S1) 5 Normal Abduction 4 Good External Rotation 4+ Good+ Internal Rotation 4+ Good+ Comments Increased effort for L knee flexion while seated Knee Strength Knee Manual Muscle Testing Right Flexion (S2) 4+ Good+ Extension (L3) 4+ Good+ Comments Done Seated Left Flexion (S2) 4+ Good+ Extension (L3) 4+ Good+ Comments Done seated PT-OP-T Assessment and Plan Start: 09/21/19 15:39 Freq: Status: Active Protocol: Document 03/23/20 16:03 MB (Rec: 03/23/20 16:03 MB [id number]) Physical Therapy Plan Discharge Physical Therapy Discharge Reasons No Longer Attending PT Discharge Comments Pt has not been seen or called to reschedule after COVID closure. Will d/c PT.
== END 2020-03-25 08:12 ==
LOC: PHYS 07:30
PROVIDERS: Family Provider Physician Assistant; PCP Physician Assistant; Visit Provider Physician Assistant
DX: M54.5 Low back pain (principal)
CPT/HCPCS: 97010; 97110; 97140; 97162

== ENCOUNTER → 2025-01-15 14:38 | Outpatient (CLI) | payer OTHER, SELFPAY ==
--- NOTE | 2025-01-15 14:45 | DI.RAD.S_ITS ---
PROCEDURE: XR HIP W PEL IF DONE LT 2V INDICATIONS: L HIP OSTEOARTHRITIS TECHNIQUE: AP pelvis with lateral view(s) of the left hip(s). COMPARISON: None. FINDINGS: Bones: No fractures or dislocations. Pelvic ring appears intact. No suspicious bony lesions. There is a [id number] degree of hip joint osteoarthritis bilaterally, slightly greater on the left than the right. Soft tissues: The visualized bowel gas pattern is normal. No suspicious soft tissue calcifications. IMPRESSION: Hip joint osteoarthritis is [id number] but slightly greater on the left than the right. No prior trauma found. Dictated by: Brett Day M.D. on 01/15/2025 at 16:10 Approved by: Brett Day M.D. on 01/15/2025 at 16:11
== END ==
LOC: RAD 14:43
PROVIDERS: Family Provider Physician Assistant; PCP Family Medicine; Referring Provider Chiropractor; Visit Provider Chiropractor
DX: M16.0 Bilateral primary osteoarthritis of hip (principal)
CPT/HCPCS: 73502

== ENCOUNTER → 2025-03-25 15:06 | Outpatient (CLI) | payer OTHER, SELFPAY ==
--- NOTE | 2025-03-25 15:11 | DI.RAD.S_ITS ---
PROCEDURE: XR CHEST 2V INDICATIONS: 59 y/o F w/ h/o right RCC s/p a partial nephrectomy TECHNIQUE: 2 views of the chest were acquired. COMPARISON: None. FINDINGS: Heart, mediastinum and pulmonary vascular: Heart is normal in size and configuration. Mediastinum is unremarkable. Pulmonary vascular is normal. Lungs: Scattered densely calcified nodule seen in both lungs. These range up to 1 cm in the posterior left upper lobe. Pleural spaces: Normal-no effusions or pneumothorax. Bones and soft tissues: Normal IMPRESSION: No acute cardiopulmonary disease. Scattered calcified nodules are likely calcified granulomas. Calcified metastases would be unlikely Dictated by: Diego Smith M.D. on 03/26/2025 at 11:36 Approved by: Diego Smith M.D. on 03/26/2025 at 11:38
--- NOTE | 2025-03-25 15:11 | DI.CT.S_ITS ---
PROCEDURE: CT ABDOMEN RENAL PROTOCOL INDICATIONS: 59 y/o F w/ h/o right RCC s/p a partial nephrectomy TECHNIQUE: Optional 5 mm thick noncontrast images acquired from the diaphragm to the iliac crests. After the administration of intravenous contrast, 5 mm thick images again acquired from the diaphragm to the iliac crests in the arterial and urographic phases. 5 mm thick coronal and sagittal reformats were then acquired. For radiation dose reduction, the following was used: automated exposure control, adjustment of mA and/or kV according to patient size. COMPARISON: None. FINDINGS: Image quality: Diagnostic. Kidneys and Ureters: No hydronephrosis. No kidney stones. Right partial nephrectomy. No solid mass. No complex renal cystic lesion which requires follow up. Large low-density left renal cyst measuring 9.2 cm, (5/57). A few peripheral calcifications. No hydroureter. OTHER: Lower chest: Unremarkable. Liver: No solid mass. Gallbladder: Absent. Biliary ducts: No biliary dilation. Pancreas: No ductal dilation. Spleen: Size is within normal limits. Calcified granulomas. Adrenal Glands: No adrenal nodules. Stomach and Bowel: Normal colonic caliber, without significant wall thickening. Diverticulosis. Normal appendix. Gastric sleeve. Peritoneum: No abnormal intraperitoneal fluid. No free air. Ventral Wall: Small fat containing umbilical hernia. Abdominal Nodes: No retroperitoneal or mesenteric adenopathy by size criteria. Small mesenteric lymph nodes. Vessels: Aorta and inferior vena cava are normal in size. Bones: No aggressive osseous abnormality. Multilevel DDD. IMPRESSION: 1. Right partial nephrectomy. No mass. 2. No kidney stones. No hydronephrosis. 3. Gastric sleeve. Dictated by: Jose Elias Calvert M.D. on 03/26/2025 at 12:30 Approved by: Jose Elias Calvert M.D. on 03/26/2025 at 12:40
[2025-03-25 15:38] LABS: Estimated Glomerular Filt Rate > 60 mL/min (>60)
== END ==
PROVIDERS: Family Provider Physician Assistant; PCP Family Medicine; Referring Provider Urology; Visit Provider Urology
DX: N28.1 Cyst of kidney, acquired (principal); K42.9 Umbilical hernia without obstruction or gangrene; K57.90 Diverticulosis of intestine, part unspecified, without perforation or abscess without bleeding; R91.8 Other nonspecific abnormal finding of lung field; Z85.528 Personal history of other malignant neoplasm of kidney; Z90.49 Acquired absence of other specified parts of digestive tract; Z98.84 Bariatric surgery status
CPT/HCPCS: 36415; 71046; 74170; 82565; Q9967

== ENCOUNTER → 2025-04-05 06:47 | Outpatient (CLI) | payer OTHER, SELFPAY ==
--- NOTE | 2025-04-05 06:49 | DI.ECHO.S_ITS ---
[facility] : : [address] : : [place] : : [id number] : : Phone: [phone] Echocardiogram Report + + :Name: MELISSA CAMPOS Study Date: 04/05/2025 Height: 64 in : :[facility] ReadingLocation: Weight: 215 lb : : Gender: Female BSA: 2.0 m2 : :: 1965 Age: 59 yrs BP: 161/100 mmHg: :Reason For Study: Systolic heart failure : :Ordering Physician: WILLIAM ALEGRIA Performed By: Kevan Self : :Referring: WILLIAM ALEGRIA : + + Interpretation Summary 1. Mildly compromised LV contractility with EF 45-50%. Mild lateral wall hypokinesis. No LVH. Unable to comment on diastolic function. 2. Normal RV contractility. 3. Normal chamber sizes. 4. No obvious valvular abnormalities. 5. No obvious intracardiac shunts. 6. No obvious intracardiac masses/thrombi. 7. No hemodynamically significant pericardial effusion. 8. Low right sided filling pressures. Conclusion: Mildly compromised LV systolic function without significant valvular abnormalities. Procedure: A two-dimensional transthoracic echocardiogram with color flow and Doppler was performed. The study quality was technically adequate. There is no prior echocardiogram noted for this patient. The patient was in normal sinus rhythm during the exam. Left Ventricle: The left ventricle is normal in size. Left ventricular wall thickness is at the upper limits of normal. The ejection fraction is estimated to be 45-50%. Left ventricular systolic function is mildly reduced. Right Ventricle: The right ventricle is normal in size and function. Atria: The left atrial size is normal. Right atrial size is normal. There is no Doppler evidence for an interatrial shunt. Mitral Valve: The mitral valve leaflets appear to open well. There is no mitral valve stenosis. There is trace mitral regurgitation. Aortic Valve: The aortic valve is trileaflet. The aortic valve opens well. There is no aortic valve stenosis. No aortic regurgitation is present. Tricuspid Valve: The tricuspid valve leaflets are thin and pliable. There is trace tricuspid regurgitation. Pulmonary artery pressures cannot be estimated because of the lack of a measurable TR jet velocity but the IVC suggests a CVP of around 3 mmHg. Pulmonic Valve: The pulmonic valve is not well seen, but is grossly normal. There is trace pulmonic regurgitation. Great Vessels: The aortic root is normal size. The ascending aorta is normal in size. The aortic arch is normal in size. The IVC is of normal diameter and collapses greater than 50% with a sniff. This suggests a low right atrial pressure of 3 mm Hg. Pericardium/ Pleura There is no pericardial effusion. MMode/2D Measurements & Calculations LVIDd: 4.8 cm LVOT diam: 2.0 cm LVIDs: 3.7 cm Ao root diam: 3.1 cm FS: 22.9 % asc Aorta Diam: 3.3 cm EPSS: 0.55 cm Ao Arch Diam (Prox Trans): 2.7 cm IVSd: 0.96 cm LVPWd: 1.0 cm LV sultana. diameter/BSA (cm/m^2): 2.4 LV sys. diameter/BSA (cm/m^2): 1.8 LA A2 area: 18.8 cm2 RA long axis: 4.8 cm LA A4 area: 23.5 cm2 RA area: 11.7 cm2 LA length (vol): 6.0 cm RA vol: 24.1 ml LA vol: 62.2 ml RA : 12.0 ml/m2 LA vol index: 30.9 ml/m2 IVC diam: 1.7 cm RVD1 (basal): 2.9 cm RVD2 (mid): 2.5 cm TAPSE: 1.8 cm Doppler Measurements & Calculations Ao V2 max: 132.4 cm/sec LVOT Max Pankaj: 83.7 cm/sec Ao V2 mean: 102.0 cm/sec LV V1 max P.8 mmHg Ao max P.0 mmHg LV V1 VTI: 18.6 cm Ao mean P.5 mmHg ALIREZA(I,D): 1.8 cm2 Ao V2 VTI: 32.3 cm ALIREZA(V,D): 2.0 cm2 sev ratio: 0.58 ALIREZA indexed to BSA (cm^2/m^2): 0.91 MV E max pankaj: 69.5 cm/sec TR max pankaj: 194.6 cm/sec MV A max pankaj: 92.7 cm/sec TR max P.2 mmHg MV E/A: 0.75 PA V2 max: 95.3 cm/sec MV dec time: 0.21 sec PA V2 mean: 71.6 cm/sec PA mean P.2 mmHg PA pr(Accel): 35.3 mmHg SV(LVOT): 59.1 ml Reading Physician:MICHAEL
== END ==
LOC: ECHO 06:48
PROVIDERS: Family Provider Physician Assistant; PCP Family Medicine; Referring Provider Family Medicine; Visit Provider Internal Medicine
DX: I50.22 Chronic systolic (congestive) heart failure (principal)
CPT/HCPCS: 93306